=== PATIENT | male | born 1930 | race Hispanic/Latino ===

== ENCOUNTER 2018-12-23 10:56 | Emergency (ER) | payer MEDICARE, BC ==
[2018-12-23 11:01] VITALS: TEMP 97; O2SAT 96
[2018-12-23 11:02] VITALS: BMI 25.1
[2018-12-23] MEDS ORDERED: Sodium Chloride 0.9% 1,000 ML IV STA (12:43)
--- NOTE | 2018-12-23 12:48 | ED PDOC ---
Syncope/Near Syncope/Dizziness Time Seen by Provider: 12/23/18 11:00 Chief Complaint (Nursing): Dizziness/Lightheaded Chief Complaint (Provider): Dizziness/Lightheaded History Per: Patient History/Exam Limitations: no limitations Additional Complaint(s): 88 y/o male with a history of PE (IVc filer) presents to the ED due to chronic lower back pain and lower left abdominal pain. Patient states this morning he felt dizzy walking out the door but now he reports hes not dizzy anymore. Patient states he stopped drinking a few years ago. Patient denies headache, fever, or any vomiting. is at bedside. PMD: Moo Garcia NIHSS Stroke Scale - Date/Time Evaluation Performed Date Performed: 12/23/18 Time Performed: 12:00 When Was NIHSS Performed: Baseline - How Severe is the Stroke Level of Consciousness: 0=Alert LOC to Questions: 0=Both comments correct LOC to commands: 0=Obeys both correctly Best Gaze: 0=Normal Visual: 0=No visual loss Facial: 0=Normal Motor Arm - Left: 0=No drift Motor Arm - Right: 0=No drift Motor Leg - Left: 0=No drift Motor Leg - Right: 0=No drift Limb Ataxia: 0=Absent Sensory: 0=Normal Best Language: 0=No aphasia Dysarthia: 0=Normal articulation Extinction & Inattention (Neglect): 0=Normal, no object Score: 0 Past Medical History Reviewed: Historical Data, Nursing Documentation, Vital Signs Vital Signs: Last Vital Signs Temp 97 F L 12/23/18 11:00 Pulse 92 H 12/23/18 11:00 Resp BP 142/84 12/23/18 11:00 Pulse Ox 96 12/23/18 11:00 - Medical History PMH: Gall Bladder Disease (porcelain GB), Peripheral Edema (right ankle), Pulmonary Embolism (09/2014) Denies: Fractures, HIV, Chronic Kidney Disease - Surgical History Surgical History: No Surg Hx - Family History Family History: States: Unknown Family Hx - Living Arrangements Living Arrangements: With Family - Social History Current smoker - smoking cessation education provided: No Alcohol: None Drugs: Denies - Home Medications Home Medications: Ambulatory Orders Medication Instructions Recorded No Known Home Med 12/23/18 - Allergies Allergies/Adverse Reactions: Allergies Allergy/AdvReac Type Severity Reaction Status Date / Time No Known Allergies Allergy Verified 09/19/14 12:39 Review of Systems ROS Statement: Except As Marked, All Systems Reviewed And Found Negative Constitutional: Negative for: Fever Gastrointestinal: Positive for: Abdominal Pain (lower left). Negative for: Vomiting Musculoskeletal: Positive for: Back Pain Neurological: Positive for: Dizziness. Negative for: Headache Physical Exam - Reviewed Nursing Documentation Reviewed: Yes Vital Signs Reviewed: Yes - Physical Exam Appears: Positive for: Well, Non-toxic, No Acute Distress Head Exam: Positive for: ATRAUMATIC, NORMOCEPHALIC Skin: Positive for: Normal Color, Warm, Dry Eye Exam: Positive for: EOMI, Normal appearance, PERRL ENT: Positive for: Normal ENT Inspection Neck: Positive for: Normal, Painless ROM, Supple Cardiovascular/Chest: Positive for: Regular Rate, Rhythm. Negative for: Murmur Respiratory: Positive for: Normal Breath Sounds. Negative for: Respiratory Distress Gastrointestinal/Abdominal: Positive for: Normal Exam, Soft, Tenderness (LLQ) Back: Positive for: Normal Inspection. Negative for: L CVA Tenderness, R CVA Tenderness, Vertebral Tenderness Extremity: Positive for: Normal ROM. Negative for: Tenderness, Swelling Neurological/Psych: Positive for: Awake, Alert, Normal Tone, Oriented (x3). Negative for: Motor/Sensory Deficits - Laboratory Results Result Diagrams: 12/23/18 13:00 12/23/18 13:00 - ECG O2 Sat by Pulse Oximetry: 96 Medical Decision Making Medical Decision Making: Time:1119 Initial Impression: Initial Plan: Blood work -EKG 1502: Call Dr. Crockett pts pcp 1516: Called Dr. Crockett and can admit patient to hospitalist. Waiting for urine results. 17:11 UA resulted, no infection noted Called the hospitalist Dr. Watters, he has accepted the patient for admission. 17:46 Patient refuses further care, evaluation or treatment in the ER. Patient informed of the reasons for the following and planned treatment, which patient understands, however still refuses. Patient informed of the risk and benefits of treatment. Informed that the risk could include worsening of current conditions, undiagnosed conditions, disability or even . Patient understands the following risk and the benefits of treatment. Patient has the capacity to make decisions and still refuses treatment by RN, PA and ER MD. Patient encouraged to return to the ER at any time and to follow up with pmd. patient aware of results and need for inpatient treatment however pt states he feels better and wants to signout AMA pt awake alert and aware of results will follow up as outpatient Scribe Attestation: Documented by Kristin Pelletier, acting as a scribe for Zuleyka Robles Provider Scribe Attestation: All medical record entries made by the Scribe were at my direction and personally dictated by me. I have reviewed the chart and agree that the record accurately reflects my personal performance of the history, physical exam, medical decision making, and the department course for this patient. I have also personally directed, reviewed, and agree with the discharge instructions and disposition. Scribe Attestation: Documented by Teddy Rob, acting as a scribe for Zuleyka Robles MD Provider Scribe Attestation: All medical record entries made by the Scribe were at my direction and personally dictated by me. I have reviewed the chart and agree that the record accurately reflects my personal performance of the history, physical exam, medical decision making, and the department course for this patient. I have also personally directed, reviewed, and agree with the discharge instructions and disposition Disposition - Clinical Impression Clinical Impression: Dizziness, Left against medical advice - Patient ED Disposition Is Patient to be Admitted: No Counseled Patient/Family Regarding: Studies Performed, Diagnosis, Need For Followup - Disposition Disposition: Against Medical Advice Disposition Time: 15:16 Condition: STABLE Instructions: Dizziness, Nonvertigo, (DC), Leaving Against Medical Advice Forms: [employer] (Nepali) - POA Present On Arrival: None
[2018-12-23 13:16] LABS: BASO % 0.2 % (0.0-2.0); HEMOGLOBIN 15.2 g/dL (12.0-18.0); LYMPH # 0.5 K/uL (1.0-4.3); LYMPH % 4.3 % (20.0-40.0); MEAN CORPUSCULAR HEMOGLOBIN 31.7 pg (27.0-31.0); MEAN CORPUSCULAR HGB CONC 32.7 g/dL (33.0-37.0); MEAN PLATELET VOLUME 9.3 fl (7.2-11.7); MONO # 0.6 K/uL (0.0-0.8); MONO % 4.9 % (0.0-10.0); NEUT # 10.8 K/uL (1.8-7.0); NEUT % 90.6 % (50.0-75.0); NRBC % 0.1 % (0.0-0.0); PLATELET COUNT 98 K/uL (130-400); RBC 4.79 Mil/uL (4.40-5.90); RED CELL DISTRIBUTION WIDTH 13.9 % (11.5-14.5); WHITE BLOOD COUNT 11.9 K/uL (4.8-10.8)
[2018-12-23 13:31] LABS: ALB/GLOB RATIO 1.5 (1.0-2.1); ALBUMIN 4.5 g/dL (3.5-5.0); ALT/SGPT 23 U/L (21-72); AST/SGOT 27 U/L (17-59); BLOOD UREA NITROGEN 30 mg/dl (9-20); CALCIUM 9.4 mg/dL (8.4-10.2); GFR NON-AFRICAN AMERICAN 57
--- NOTE | 2018-12-23 14:00 | CT ---
Date of service: 12/23/2018 PROCEDURE: CT HEAD WITHOUT CONTRAST. HISTORY: dizziness COMPARISON: None available. TECHNIQUE: Axial computed tomography images were obtained through the head/brain without intravenous contrast. Radiation dose: Total exam DLP = 925.16 mGy-cm. This CT exam was performed using one or more of the following dose reduction techniques: Automated exposure control, adjustment of the mA and/or kV according to patient size, and/or use of iterative reconstruction technique. FINDINGS: HEMORRHAGE: No intracranial hemorrhage. BRAIN: There are mild chronic microangiopathic changes. There is no mass, mass effect or abnormal extra-axial fluid collection. There is no territorial infarction. The midline sagittal structures are normal. VENTRICLES: There is mild age-related global parenchymal volume loss and proportionate enlargement of the ventricles and cortical sulci. There is a prominent arachnoid granulation in the right superior posterior fossa with scalloping of the overlying inner table of the occipital bone. CALVARIUM: There is no calvarial fracture or extracranial soft tissue swelling. PARANASAL SINUSES: Predominantly clear. MASTOID AIR CELLS: Predominantly clear. OTHER FINDINGS: None. IMPRESSION: No acute intracranial abnormality. Mild chronic microangiopathic changes and mild age-related global parenchymal volume loss.
--- NOTE | 2018-12-23 14:27 | CT ---
Date of service: 12/23/2018 PROCEDURE: CT Abdomen and Pelvis without intravenous contrast HISTORY: Abdominal pain COMPARISON: None. TECHNIQUE: CT scan of the abdomen and pelvis was performed without administration of intravenous contrast. Oral contrast was not administered. Coronal and sagittal reformatted images were obtained. Radiation dose: Total exam DLP = 538.99 mGy-cm. This CT exam was performed using one or more of the following dose reduction techniques: Automated exposure control, adjustment of the mA and/or kV according to patient size, and/or use of iterative reconstruction technique. FINDINGS: LOWER THORAX: There is minimal subsegmental atelectasis in the lung bases. LIVER: Normal in size. No gross lesion or ductal dilatation. GALLBLADDER AND BILE DUCTS: Surgically absent. PANCREAS: Normal in size. No gross lesion or ductal dilatation. SPLEEN: Normal in size. ADRENALS: Mild thickening of both adrenal glands without discrete nodule. KIDNEYS AND URETERS: Both kidneys are normal in size. No hydronephrosis. There are punctate nonobstructing stones in the left kidney. There is nonspecific extensive perinephric fat stranding. VASCULATURE: Normal in caliber. No aortic aneurysm. No aortic atherosclerotic calcification or mural plaque present. A suprarenal IVC filter remains in place BOWEL: Evaluation of the bowel is limited in the absence of oral contrast. The small bowel loops are normal in caliber. There is extensive colonic diverticulosis without CT evidence for acute diverticulitis.. No bowel dilatation or wall thickening. No bowel obstruction. APPENDIX: Normal appendix. PERITONEUM: No free fluid. No free air. LYMPH NODES: No enlarged lymph nodes. BLADDER: The urinary bladder is partially distended. There is apparent moderate circumferential mural thickening with nonspecific perivesical fat stranding. REPRODUCTIVE: The prostate gland is normal in size. There are radiation seeds in the prostate gland. BONES: No acute fracture. There is diffuse bone demineralization and multilevel degenerative changes in the spine. OTHER FINDINGS: There is a small sliding hiatal hernia. IMPRESSION: 1. Punctate nonobstructing stones in the left kidney. No hydronephrosis or nephrolithiasis. Extensive perinephric fat stranding, nonspecific and likely related to report infection/inflammation. 2. The urinary bladder is partially distended. Apparent moderate circumferential mural thickening of the bladder wall with perivesical fat stranding could be related to underdistention however cystitis is a consideration. Clinical follow-up is advised. 3. Extensive colonic diverticulosis without CT evidence for acute diverticulitis.
[2018-12-23 14:44] LABS: LYMPHOCYTE 7 % (20-50); MONOCYTE 4 % (0-10); NEUTROPHIL 88 % (42-75); REACTIVE LYMPHOCYTES 1 % (0-0); TOTAL CELLS COUNTED 100
[2018-12-23 14:46] LABS: LARGE PLATELETS PRESENT; PLATELET ESTIMATE DECREASED (NORMAL)
[2018-12-23 14:47] LABS: GIANT PLATELETS PRESENT
[2018-12-23 16:38] LABS: URINE BILIRUBIN NEGATIVE (NEGATIVE); URINE CLARITY SLIGHT-CLOUDY (Clear); URINE COLOR YELLOW (YELLOW); URINE GLUCOSE (UA) NEGATIVE (NEGATIVE)
[2018-12-23 16:39] LABS: SQUAMOUS EPITHIAL 3 /hpf (0-5); URINE BLOOD MODERATE (NEGATIVE); URINE LEUKOCYTE ESTERASE NEGATIVE Leu/uL (Negative); URINE PROTEIN >=300 mg/dL (NEGATIVE); URINE UROBILINOGEN 0.2 mg/dL (0.2-1.0)
[2018-12-23 16:40] LABS: GRANULAR CAST 0-1 /lpf (0-1); URINE AMORPHOUS SEDIMENT FEW /ul (<OCC); URINE BACTERIA FEW (<OCC)
[2018-12-23 18:15] VITALS: RESP 18
[2018-12-23 18:19] VITALS: BP 132/79; PULSE 85
--- NOTE | 2018-12-24 09:53 | CARD ---
APPROVED REPORT Date of service: 12/23/2018 EKG Measurement Heart [id number] <Conclusion> Sinus rhythm with occasional premature ventricular complexes and premature atrial complexes Left axis deviation Inferior infarct, age undetermined Abnormal ECG
--- NOTE | 2018-12-24 13:29 | CP.PCM.CON ---
History of Present Illness - History of Present Illness History of Present Illness: Neurology Consultation Note: Consult requested by Dr. Crockett The patient is an 88-year-old man with a past medical history of HTN, back pain, who complained of dizziness at home, but this resolved. The patient has no focal deficits. CT head is not concerning. Review of Systems - Review of Systems All systems: reviewed and no additional remarkable complaints except Past Patient History - Past Medical History & Family History Past Medical History?: Yes - Past Social History Smoking Status: Never Smoked - CARDIAC Hx Peripheral Edema: Yes (right ankle) - PULMONARY Hx Pulmonary Embolism: Yes (09/2014) - NEUROLOGICAL Hx Neurological Disorder: No - HEENT Hx HEENT Problems: No - RENAL Hx Chronic Kidney Disease: No - ENDOCRINE/METABOLIC Hx Endocrine Disorders: No - HEMATOLOGICAL/ONCOLOGICAL Hx Human Immunodeficiency Virus (HIV): No - INTEGUMENTARY Hx Dermatological Problems: No - MUSCULOSKELETAL/RHEUMATOLOGICAL Hx Fractures: No - GASTROINTESTINAL Hx Gall Bladder Disease: Yes (porcelain GB) - GENITOURINARY/GYNECOLOGICAL Hx Genitourinary Disorders: No - PSYCHIATRIC Hx Psychophysiologic Disorder: No Hx Substance Use: No - SURGICAL HISTORY Other/Comment: PROSTATE SEED IMPLANT 2002 - ANESTHESIA Hx Anesthesia: Yes Hx Anesthesia Reactions: No Hx Malignant Hyperthermia: No Meds Allergies/Adverse Reactions: Allergies Allergy/AdvReac Type Severity Reaction Status Date / Time No Known Allergies Allergy Verified 09/19/14 12:39 Physical Exam - Constitutional Appears: Well - Head Exam Head Exam: ATRAUMATIC, NORMAL INSPECTION, NORMOCEPHALIC - Eye Exam Eye Exam: EOMI, Normal appearance, PERRL Pupil Exam: NORMAL ACCOMODATION, PERRL - ENT Exam ENT Exam: Mucous Membranes Moist, Normal Exam - Neck Exam Neck exam: Positive for: Normal Inspection - Respiratory Exam Respiratory Exam: Clear to Auscultation Bilateral, NORMAL BREATHING PATTERN - Cardiovascular Exam Cardiovascular Exam: REGULAR RHYTHM - GI/Abdominal Exam GI & Abdominal Exam: Normal Bowel Sounds, Soft. absent: Tenderness - Extremities Exam Extremities exam: Positive for: normal inspection - Back Exam Back exam: NORMAL INSPECTION - Neurological Exam Neurological exam: Alert, CN II-XII Intact, Normal Gait, Oriented x3, Reflexes Normal - Psychiatric Exam Psychiatric exam: Normal Affect, Normal Mood - Skin Skin Exam: Dry, Intact, Normal Color, Warm Results - Vital Signs Recent Vital Signs: Last Vital Signs Temp 97 F L 12/23/18 11:00 Pulse 85 12/23/18 17:18 Resp 18 12/23/18 17:18 BP 132/79 12/23/18 17:18 Pulse Ox 96 12/23/18 18:38 - Labs Result Diagrams: 12/23/18 13:00 12/23/18 13:00 Labs: Laboratory Results - last 24 hr 12/23/18 12/23/18 12/23/18 13:00 13:00 15:20 Neutrophils % (Manual) 88 H Lymphocytes % (Manual) 7 L Reactive Lymphs % 1 H Monocytes % (Manual) 4 Platelet Estimate Decreased L Large Platelets Present Giant Platelets Present Sodium 137 Potassium 4.6 Chloride 105 Carbon Dioxide 23 Anion Gap 14 BUN 30 H Creatinine 1.2 Est GFR ( Amer) > 60 Est GFR (Non-Af Amer) 57 Random Glucose 115 H Calcium 9.4 Total Bilirubin 0.8 AST 27 ALT 23 Alkaline Phosphatase 90 Total Protein 7.4 Albumin 4.5 Globulin 3.0 Albumin/Globulin Ratio 1.5 Urine Color Yellow Urine Clarity Slight-cloudy Urine pH 6.0 Ur Specific [place] >= 1.030 Urine Protein >=300 Urine Glucose (UA) Negative Urine Ketones Negative Urine Blood Moderate Urine Nitrate Negative Urine Bilirubin Negative Urine Urobilinogen 0.2 Ur Leukocyte Esterase Negative Urine RBC (Auto) 35 H Urine Microscopic WBC 2 Ur Squamous Epith Cells 3 Amorphous Sediment Few H Urine Bacteria Few H Hyaline Casts 2-4 Granular Casts (Auto) 0-1 Assessment & Plan (1) Dizziness Assessment and Plan: No further recommendations. Status: Acute
== END 2018-12-23 18:19 | disposition left against medical advice (07) ==
LOC: H.ER 10:56 → H.ERHOLD 17:14 → UNDOADMOB 17:14
DX: R42 Dizziness and giddiness (principal)
CPT/HCPCS: 70450; 74176; 80053; 81003; 82948; 85025; 87086; 93005; 99285; J7030

== ENCOUNTER 2019-01-03 11:50 | Inpatient (IN) | payer MEDICARE, BC ==
[2019-01-03 12:00] VITALS: BMI 25.8
--- NOTE | 2019-01-03 13:37 | ED PDOC ---
Lower Extremity Pain/Injury Time Seen by Provider: 01/03/19 12:44 Chief Complaint (Nursing): Lower Extremity Problem/Injury Chief Complaint (Provider): Lower extremity swelling History Per: Patient History/Exam Limitations: no limitations Onset/Duration Of Symptoms: Days Current Symptoms Are (Timing): Still Present Additional History Per: Patient Additional Complaint(s): 88yo male, comes to ER reporting bilateral lower extremity swelling, which has been worsening. Patient was seen in this ER 2 weeks ago, had a workup inculding US doppler, which was negative. Patient followed up with his PMD who advised him to stay off his feet and to rest. patient states despite resting, the swelling is persistent. He additionally reports decreased appetite, mild abdominal pain and some lower back pain. No trauma or injuries to these sites. Patient denies any recent travels, long periods of immobilization, calf pain. No additional complaints. PMD: Dr. Crockett Past Medical History Reviewed: Historical Data, Nursing Documentation, Vital Signs Vital Signs: Last Vital Signs Temp 97 F L 01/03/19 11:58 Pulse 87 01/03/19 11:58 Resp 18 01/03/19 11:58 BP 115/72 01/03/19 11:58 Pulse Ox 99 01/03/19 11:58 - Medical History PMH: Gall Bladder Disease (porcelain GB), Peripheral Edema (right ankle), Pulmonary Embolism (09/2014) Denies: Fractures, HIV, Chronic Kidney Disease - Surgical History Surgical History: No Surg Hx - Family History Family History: States: No Known Family Hx - Home Medications Home Medications: Ambulatory Orders Medication Instructions Recorded No Known Home Med 12/23/18 - Allergies Allergies/Adverse Reactions: Allergies Allergy/AdvReac Type Severity Reaction Status Date / Time No Known Allergies Allergy Verified 09/19/14 12:39 Review of Systems ROS Statement: Except As Marked, All Systems Reviewed And Found Negative Musculoskeletal: Positive for: Other (bilateral leg swelling) Physical Exam - Reviewed Nursing Documentation Reviewed: Yes Vital Signs Reviewed: Yes - Physical Exam Appears: Positive for: Non-toxic, No Acute Distress Head Exam: Positive for: ATRAUMATIC, NORMAL INSPECTION, NORMOCEPHALIC Skin: Positive for: Normal Color Eye Exam: Positive for: Normal appearance, EOMI, PERRL Neck: Positive for: Supple Cardiovascular/Chest: Positive for: Regular Rate, Rhythm. Negative for: Tachycardia Respiratory: Positive for: Normal Breath Sounds. Negative for: Respiratory Distress Pulses-Dorsalis Pedis (L): 2+ Pulses-Dorsalis Pedis (R): 2+ Pulses-Post. Tibialis (L): 2+ Pulses-Post. Tibialis (R): 2+ Extremity: Positive for: Normal ROM (FROM of bilateral lower extremities), Pedal Edema (non-pitting edema bilaterally), Capillary Refill (< 2 seconds). Negative for: Calf Tenderness, Deformity Neurological/Psych: Positive for: Awake, Alert, Oriented (x3) - Laboratory Results Result Diagrams: 01/04/19 06:15 01/04/19 06:15 - ECG O2 Sat by Pulse Oximetry: 99 (RA) Pulse Ox Interpretation: Normal Medical Decision Making Medical Decision Making: Workup for worsening leg swelling, r/o cardiac etiology -- CXR -- Labs including BNP, troponin ordered 1540 Patient had a bowel movement with bright red blood GI consult 1640. Spoke with Dr. Crockett who states that there was a plan to start the patient on anticoagulants due to BL DVTs but in agreement to not starting this medication at this time due to new GI bleed. Pt admitted to the medicine service and will be seen by GI. Pt with stable vitals and comfortable. Scribe Attestation: Documented by Antonia Koenig acting as a scribe for Jemima Rico MD. Provider Attestation: All medical record entries made by the Scribe were at my direction and personally dictated by me. I have reviewed the chart and agree that the record accurately reflects my personal performance of the history, physical exam, medical decision making, and the department course for this patient. I have also personally directed, reviewed, and agree with the discharge instructions and disposition. Disposition - Clinical Impression Clinical Impression: DVT (deep venous thrombosis), GI bleed - Disposition Disposition Time: 13:55 Condition: IMPROVED
[2019-01-03 14:12] LABS: BASO % 0.2 % (0.0-2.0); HEMOGLOBIN 12.3 g/dL (12.0-18.0); LYMPH # 0.6 K/uL (1.0-4.3); LYMPH % 5.3 % (20.0-40.0); MEAN CELL VOLUME 97.5 fl (80.0-94.0); MEAN CORPUSCULAR HEMOGLOBIN 31.8 pg (27.0-31.0); MEAN CORPUSCULAR HGB CONC 32.7 g/dL (33.0-37.0); MEAN PLATELET VOLUME 8.3 fl (7.2-11.7); MONO # 0.9 K/uL (0.0-0.8); MONO % 7.6 % (0.0-10.0); NEUT # 10.2 K/uL (1.8-7.0); NEUT % 86.9 % (50.0-75.0); NRBC % 0.1 % (0.0-0.0); PLATELET COUNT 157 K/uL (130-400); RBC 3.86 Mil/uL (4.40-5.90); RED CELL DISTRIBUTION WIDTH 13.8 % (11.5-14.5); WHITE BLOOD COUNT 11.7 K/uL (4.8-10.8)
[2019-01-03 14:19] LABS: INR 1.2; PROTHROMBIN TIME 13.4 Seconds (9.8-13.1)
--- NOTE | 2019-01-03 14:19 | RAD ---
Date of service: 01/03/2019 HISTORY: possible admission COMPARISON: No prior. TECHNIQUE: 1 view obtained. FINDINGS: LUNGS: Fibrotic changes are reiterated at the superior and lateral left lung zone as well as right apex. PLEURA: No significant pleural effusion identified, no pneumothorax apparent. CARDIOVASCULAR: Calcific atherosclerotic changes are seen related to the thoracic aorta. Normal cardiac size. No pulmonary vascular congestion. OSSEOUS STRUCTURES: No significant abnormalities. VISUALIZED UPPER ABDOMEN: Inferior vena cava filter again noted as well as surgical clips at the right upper quadrant abdomen. OTHER FINDINGS: None. IMPRESSION: No interval acute cardiopulmonary disease. Limited fibrotic changes in the bilateral apices and lateral left lung blackmon as well.
[2019-01-03 14:33] LABS: B-TYPE NATRIURETIC PEPTIDE 276 pg/ml (0-900)
[2019-01-03 14:34] LABS: BLOOD UREA NITROGEN 43 mg/dl (9-20); CALCIUM 9.2 mg/dL (8.4-10.2); GFR NON-AFRICAN AMERICAN 52
[2019-01-03 15:34] LABS: SQUAMOUS EPITHIAL 1 /hpf (0-5); URINE BACTERIA RARE (<OCC); URINE BILIRUBIN NEGATIVE (NEGATIVE); URINE BLOOD NEGATIVE (NEGATIVE); URINE CLARITY CLOUDY (Clear); URINE COLOR YELLOW (YELLOW); URINE GLUCOSE (UA) NEG (NEGATIVE); URINE LEUKOCYTE ESTERASE NEG Leu/uL (Negative); URINE PROTEIN 30 mg/dL (NEGATIVE); URINE UROBILINOGEN 0.2-1.0 mg/dL (0.2-1.0)
--- NOTE | 2019-01-03 16:40 | US ---
Date of service: 01/03/2019 PROCEDURE: Bilateral lower extremity venous duplex Doppler. HISTORY: rule out DVT COMPARISON: Bilateral lower extremity venous ultrasound 12/30/2018. TECHNIQUE: Bilateral common femoral, superficial femoral, popliteal and posterior tibial veins were evaluated. Flow was assessed with color Doppler, compressibility, assessment of phasic flow and augmentation response. FINDINGS: COMMON FEMORAL VEIN: The bilateral common femoral arteries are noncompressible with no augmentation or spontaneous color Doppler blood flow compatible with occlusive thrombosis. SUPERFICIAL FEMORAL VEIN: Occlusive thrombosis identified at the entire left superficial femoral vein which is noncompressible and non augmentable with no spontaneous color Doppler blood flow with similar changes at the proximal and distal right superficial femoral vein. The mid right SV exhibits [id number] spontaneous color Doppler blood flow and is inside technical sales representative of near occlusive thrombosis in the interval. Acute thrombosis superimposed over chronic right superficial femoral vein thrombosis. POPLITEAL VEIN: Near occlusive right and occlusive left venous thrombosis identified based on limited color per blood flow spontaneously occurring at the right popliteal vein and the lack of augmentation and compression at both. POSTERIOR TIBIAL VEIN: Right PTV: Occlusive thrombosis. Left PTV: Occlusive thrombosis. OTHER FINDINGS: None. 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 Occlusive thrombosis now seen at the right superficial femoral vein and is near occlusive at the right popliteal vein. Interval acute subacute occlusive thrombosis identified bilaterally diffusely otherwise.
[2019-01-03 17:24] LABS: LYMPHOCYTE 7 % (20-50); MONOCYTE 8 % (0-10); NEUTROPHIL 85 % (42-75); TOTAL CELLS COUNTED 100
[2019-01-03 17:26] LABS: PLATELET ESTIMATE NORMAL (NORMAL)
--- NOTE | 2019-01-03 17:44 | CP.PCM.HP ---
History of Present Illness - History of Present Illness History of Present Illness: 88 yo male with PMH of Lower Ext peripheral edema and Pulmonary Embolism (09/2014) present to the ED c/o bilateral lower extremity swelling, which has been worsening for the past few weeks. Patient was seen in this ER 2 weeks ago and had a workup inculding US doppler, which was negative. Patient followed up with his PMD and was advised to rest, he endorses despite resting, the swelling is persistent. He additionally reports decreased appetite, mild abdominal pain and some lower back pain. He reports taking occasional Aspirin for pain. During ED stay patient was noted to had a dark bloody stool. He reports occasional painful defecation and h/o fissure. Otherwise he denies trauma or injuries, any recent travels, long periods of immobilization, calf pain, prior melena or hematochezia. Also denies fever, chills, no weight loss, urinary sx or changes in BM. PMD: Dr. Crockett PMH: Gall Bladder Disease, Peripheral Edema lower ext, Pulmonary Embolism (09/2014) PSH: No known surg hx Meds FMH:No Known Family Hx NKDA SH: denies etoh, tobacco or ilicit drugs use Present on Admission - Present on Admission Any Indicators Present on Admission: Yes History of DVT/PE: Yes Review of Systems - Review of Systems All systems: reviewed and no additional remarkable complaints except (HPI) Past Patient History - Past Medical History & Family History Past Medical History?: Yes - Past Social History Smoking Status: Never Smoked - CARDIAC Hx Peripheral Edema: Yes (right ankle) - PULMONARY Hx Pulmonary Embolism: Yes (09/2014) - NEUROLOGICAL Hx Neurological Disorder: No - HEENT Hx HEENT Problems: No - RENAL Hx Chronic Kidney Disease: No - ENDOCRINE/METABOLIC Hx Endocrine Disorders: No - HEMATOLOGICAL/ONCOLOGICAL Hx Human Immunodeficiency Virus (HIV): No - INTEGUMENTARY Hx Dermatological Problems: No - MUSCULOSKELETAL/RHEUMATOLOGICAL Hx Fractures: No - GASTROINTESTINAL Hx Gall Bladder Disease: Yes (porcelain GB) - GENITOURINARY/GYNECOLOGICAL Hx Genitourinary Disorders: No - PSYCHIATRIC Hx Psychophysiologic Disorder: No Hx Substance Use: No - SURGICAL HISTORY Other/Comment: PROSTATE SEED IMPLANT 2002 - ANESTHESIA Hx Anesthesia: Yes Hx Anesthesia Reactions: No Hx Malignant Hyperthermia: No Meds Allergies/Adverse Reactions: Allergies Allergy/AdvReac Type Severity Reaction Status Date / Time No Known Allergies Allergy Verified 09/19/14 12:39 Physical Exam - Constitutional Appears: Non-toxic, No Acute Distress, Other (pale) - Head Exam Head Exam: NORMAL INSPECTION - Eye Exam Eye Exam: EOMI, PERRL - ENT Exam ENT Exam: Mucous Membranes Moist - Neck Exam Neck exam: Positive for: Full Rom. Negative for: Lymphadenopathy, Tenderness, Thyromegaly - Respiratory Exam Respiratory Exam: Clear to Auscultation Bilateral, NORMAL BREATHING PATTERN. absent: Chest Wall Tenderness - Cardiovascular Exam Cardiovascular Exam: REGULAR RHYTHM, +S1, +S2. absent: Tachycardia, Systolic Murmur - GI/Abdominal Exam GI & Abdominal Exam: Normal Bowel Sounds, Soft, Tenderness (RUQ and lower quadrants). absent: Distended - Rectal Exam Rectal Exam: Deferred - Extremities Exam Extremities exam: Positive for: pedal pulses present. Negative for: calf tenderness Additional comments: B/L pitting edema 2+ from ankle to mid barcenas - Back Exam Back exam: NORMAL INSPECTION, paraspinal tenderness. absent: CVA tenderness (L), CVA tenderness (R) - Neurological Exam Neurological exam: Alert, CN II-XII Intact, Oriented x3 - Psychiatric Exam Psychiatric exam: Normal Mood - Skin Skin Exam: Dry, Pallor, Warm Results - Vital Signs Recent Vital Signs: Last Vital Signs Temp 97 F L 01/03/19 11:58 Pulse 87 01/03/19 11:58 Resp 18 01/03/19 11:58 BP 115/72 01/03/19 11:58 Pulse Ox 99 01/03/19 16:43 - Labs Result Diagrams: 01/03/19 13:50 01/03/19 13:50 Labs: Laboratory Results - last 24 hr 01/03/19 01/03/19 01/03/19 13:50 13:50 13:50 WBC 11.7 H RBC 3.86 L Hgb 12.3 D Hct 37.7 MCV 97.5 H MCH 31.8 H MCHC 32.7 L RDW 13.8 Plt Count 157 MPV 8.3 Neut % (Auto) 86.9 H Lymph % (Auto) 5.3 L [place] % (Auto) 7.6 Eos % (Auto) 0.0 Baso % (Auto) 0.2 Neut # (Auto) 10.2 H Lymph # (Auto) 0.6 L [place] # (Auto) 0.9 H Eos # (Auto) 0.0 Baso # (Auto) 0.0 Neutrophils % (Manual) 85 H Lymphocytes % (Manual) 7 L Monocytes % (Manual) 8 Platelet Estimate Normal Macrocytosis (manual) Slight PT 13.4 H INR 1.2 APTT 32.0 Sodium 136 Potassium 4.7 Chloride 100 Carbon Dioxide 25 Anion Gap 16 BUN 43 H Creatinine 1.3 Est GFR ( Amer) > 60 Est GFR (Non-Af Amer) 52 Random Glucose 113 H Calcium 9.2 Troponin I < 0.0120 NT-Pro-B Natriuret Pep 276 Urine Color Urine Clarity Urine pH Ur Specific [place] Urine Protein Urine Glucose (UA) Urine Ketones Urine Blood Urine Nitrate Urine Bilirubin Urine Urobilinogen Ur Leukocyte Esterase Urine RBC (Auto) Urine Microscopic WBC Ur Squamous Epith Cells Urine Bacteria Hyaline Casts Blood Type Antibody Screen BBK History Checked 01/03/19 01/03/19 13:50 15:00 WBC RBC Hgb Hct MCV MCH MCHC RDW Plt Count MPV Neut % (Auto) Lymph % (Auto) [place] % (Auto) Eos % (Auto) Baso % (Auto) Neut # (Auto) Lymph # (Auto) [place] # (Auto) Eos # (Auto) Baso # (Auto) Neutrophils % (Manual) Lymphocytes % (Manual) Monocytes % (Manual) Platelet Estimate Macrocytosis (manual) PT INR APTT Sodium Potassium Chloride Carbon Dioxide Anion Gap BUN Creatinine Est GFR ( Amer) Est GFR (Non-Af Amer) Random Glucose Calcium Troponin I NT-Pro-B Natriuret Pep Urine Color Yellow Urine Clarity Cloudy Urine pH 5.0 Ur Specific [place] 1.024 Urine Protein 30 Urine Glucose (UA) Neg Urine Ketones Negative Urine Blood Negative Urine Nitrate Negative Urine Bilirubin Negative Urine Urobilinogen 0.2-1.0 Ur Leukocyte Esterase Neg Urine RBC (Auto) 2 Urine Microscopic WBC 3 Ur Squamous Epith Cells 1 Urine Bacteria Rare Hyaline Casts 11-20 H Blood Type B POSITIVE Antibody Screen Negative BBK History Checked Patient has bt Assessment & Plan - Assessment and Plan (Free Text) Assessment: 88 yo male patient admitted for evaluation and management of acute GI bleeding and bilateral lower ext edema. Plan: GI bleeding - admit to med/surg - VSS - likely upper because dark bloody stool - H/H stable - GI consulted: possible EGD in am - NPO - IVF - repeat CBC in 6 hrs - labs in am Subacute DVT on proximal R SFV DVT R popliteal vein - no anticoagulation for now due to GI bleed h/o chronic back pain - pain management - avoid NSAIDs and/or ASA Dehydration - likely do to poor intake - BUN 43 - IVF - f/u labs in am GI ppx - protonix Case discussed with Dr Silverio.
--- NOTE | 2019-01-03 18:48 | RAD ---
Date of service: 01/03/2019 PROCEDURE: Radiographs of the Lumbar Spine. HISTORY: fall COMPARISON: No prior. TECHNIQUE: 5 views obtained. FINDINGS: BONES: Normal alignment. No listhesis. No fracture. DISC SPACES: Unremarkable. OTHER FINDINGS: IVC filter identified. Vian seeds related to brachytherapy identified in the prostate. IMPRESSION: No significant or acute findings to account for/ related to the clinical presentation.
--- NOTE | 2019-01-03 18:48 | RAD ---
Date of service: 01/03/2019 PROCEDURE: Radiographs of the pelvis. HISTORY: Trauma/fall. COMPARISON: None. TECHNIQUE: 1 view obtained. FINDINGS: BONES: Pelvic Bones: Unremarkable. Hips: Degenerative changes are bilaterally symmetrical. JOINTS: Sacroiliac Joints: Unremarkable. Pubic Symphysis: Unremarkable. OTHER FINDINGS: [place] seeds related to brachytherapy identified in the prostate. IMPRESSION: No acute findings related to/ accounting for the clinical presentation.
[2019-01-03] MEDS: Sodium Chloride 0.9% 1,000 ML IV SCH (19:27)
[2019-01-03 19:57] LABS: ALB/GLOB RATIO 1.2 (1.0-2.1); ALBUMIN 3.9 g/dL (3.5-5.0); BILIRUBIN,DIRECT 0.4 mg/ml (0.0-0.4)
[2019-01-03] MEDS ORDERED: Naproxen 500 MG TAB PO SCH (21:00)
--- NOTE | 2019-01-03 23:13 | CP.PCM.CON ---
History of Present Illness - History of Present Illness History of Present Illness: 88 yo male referred to ER for presyncopal episodes, lower extremity weakness, and rectal bleeding. patient seen in ER 2 weeks ago and found to have DVT lower extremities. Not on anticoagulation due to rectal bleeding. Has been having difficulty solids and therefore has reduced oral intake. Has to chew well and feels he has to swish fod around in his mouth.Had bm in hospital and red mixed with dark stool was seen. Uses ASA fairly often for pain. Currently not on regular anticoagulant treatment. Past h/o PE. Review of Systems - EENT Eyes: absent: Blurred Vision Ears: absent: Ear Discharge Nose/Mouth/Throat: absent: Epistaxis - Cardiovascular Cardiovascular: absent: Chest Pain - Respiratory Respiratory: absent: Dyspnea - Gastrointestinal Gastrointestinal: As Per HPI, Dysphagia - Genitourinary Genitourinary: absent: Change in Urinary Stream Past Patient History - Past Medical History & Family History Past Medical History?: Yes - Past Social History Smoking Status: Never Smoked - CARDIAC Hx Cardiac Disorders: Yes Hx Peripheral Edema: Yes (right ankle) - PULMONARY Hx Respiratory Disorders: Yes Hx Pulmonary Embolism: Yes (09/2014) - NEUROLOGICAL Hx Neurological Disorder: No - HEENT Hx HEENT Problems: No - RENAL Hx Chronic Kidney Disease: No - ENDOCRINE/METABOLIC Hx Endocrine Disorders: No - HEMATOLOGICAL/ONCOLOGICAL Hx Blood Disorders: No Hx Human Immunodeficiency Virus (HIV): No - INTEGUMENTARY Hx Dermatological Problems: No - MUSCULOSKELETAL/RHEUMATOLOGICAL Hx Musculoskeletal Disorders: Yes Hx Falls: Yes (1 month ago) - GASTROINTESTINAL Hx Gastrointestinal Disorders: Yes Hx Gall Bladder Disease: Yes (porcelain GB) - GENITOURINARY/GYNECOLOGICAL Hx Genitourinary Disorders: No - PSYCHIATRIC Hx Psychophysiologic Disorder: No Hx Substance Use: No - SURGICAL HISTORY Hx Surgeries: No Other/Comment: PROSTATE SEED IMPLANT 2002 - ANESTHESIA Hx Anesthesia: Yes Hx Anesthesia Reactions: No Hx Malignant Hyperthermia: No Meds Allergies/Adverse Reactions: Allergies Allergy/AdvReac Type Severity Reaction Status Date / Time No Known Allergies Allergy Verified 09/19/14 12:39 - Medications Medications: Current Medications Acetaminophen (Tylenol 325mg Tab) 650 mg PO Q6 PRN PRN Reason: Fever >100.4 F Sodium Chloride (Sodium Chloride 0.9%) 1,000 mls @ 100 mls/hr IV .Q10H [facility] Last Admin: 01/03/19 19:27 Dose: 100 mls/hr Lidocaine (Lidoderm) 1 ea TD DAILY [facility] Ondansetron HCl (Zofran Inj) 4 mg IVP Q6 PRN PRN Reason: Nausea/Vomiting Pantoprazole Sodium (Protonix Inj) 40 mg IVP DAILY [facility] Physical Exam - Head Exam Head Exam: ATRAUMATIC - Eye Exam Eye Exam: Normal appearance - ENT Exam ENT Exam: Mucous Membranes Moist - Neck Exam Neck exam: Positive for: Full Rom - Respiratory Exam Respiratory Exam: Clear to Auscultation Bilateral - Cardiovascular Exam Cardiovascular Exam: REGULAR RHYTHM, +S1, +S2 - GI/Abdominal Exam GI & Abdominal Exam: Normal Bowel Sounds, Soft. absent: Tenderness Results - Vital Signs Recent Vital Signs: Last Vital Signs Temp 98 F 01/03/19 21:01 Pulse 88 01/03/19 21:01 Resp 18 01/03/19 21:01 BP 135/80 01/03/19 21:01 Pulse Ox 98 01/03/19 21:01 - Labs Result Diagrams: 01/03/19 13:50 01/03/19 13:50 Labs: Laboratory Results - last 24 hr 01/03/19 01/03/19 01/03/19 13:50 13:50 13:50 WBC 11.7 H RBC 3.86 L Hgb 12.3 D Hct 37.7 MCV 97.5 H MCH 31.8 H MCHC 32.7 L RDW 13.8 Plt Count 157 MPV 8.3 Neut % (Auto) 86.9 H Lymph % (Auto) 5.3 L [place] % (Auto) 7.6 Eos % (Auto) 0.0 Baso % (Auto) 0.2 Neut # (Auto) 10.2 H Lymph # (Auto) 0.6 L [place] # (Auto) 0.9 H Eos # (Auto) 0.0 Baso # (Auto) 0.0 Neutrophils % (Manual) 85 H Lymphocytes % (Manual) 7 L Monocytes % (Manual) 8 Platelet Estimate Normal Macrocytosis (manual) Slight PT 13.4 H INR 1.2 APTT 32.0 Sodium 136 Potassium 4.7 Chloride 100 Carbon Dioxide 25 Anion Gap 16 BUN 43 H Creatinine 1.3 Est GFR ( Amer) > 60 Est GFR (Non-Af Amer) 52 Random Glucose 113 H Calcium 9.2 Total Bilirubin Direct Bilirubin AST ALT Alkaline Phosphatase Troponin I < 0.0120 NT-Pro-B Natriuret Pep 276 Total Protein Albumin Globulin Albumin/Globulin Ratio Urine Color Urine Clarity Urine pH Ur Specific [place] Urine Protein Urine Glucose (UA) Urine Ketones Urine Blood Urine Nitrate Urine Bilirubin Urine Urobilinogen Ur Leukocyte Esterase Urine RBC (Auto) Urine Microscopic WBC Ur Squamous Epith Cells Urine Bacteria Hyaline Casts Blood Type Antibody Screen BBK History Checked 01/03/19 01/03/19 01/03/19 13:50 15:00 19:44 WBC RBC Hgb Hct MCV MCH MCHC RDW Plt Count MPV Neut % (Auto) Lymph % (Auto) [place] % (Auto) Eos % (Auto) Baso % (Auto) Neut # (Auto) Lymph # (Auto) [place] # (Auto) Eos # (Auto) Baso # (Auto) Neutrophils % (Manual) Lymphocytes % (Manual) Monocytes % (Manual) Platelet Estimate Macrocytosis (manual) PT INR APTT Sodium Potassium Chloride Carbon Dioxide Anion Gap BUN Creatinine Est GFR ( Amer) Est GFR (Non-Af Amer) Random Glucose Calcium Total Bilirubin 0.9 Direct Bilirubin 0.4 AST 40 ALT 31 Alkaline Phosphatase 79 Troponin I NT-Pro-B Natriuret Pep Total Protein 7.1 Albumin 3.9 Globulin 3.2 Albumin/Globulin Ratio 1.2 Urine Color Yellow Urine Clarity Cloudy Urine pH 5.0 Ur Specific [place] 1.024 Urine Protein 30 Urine Glucose (UA) Neg Urine Ketones Negative Urine Blood Negative Urine Nitrate Negative Urine Bilirubin Negative Urine Urobilinogen 0.2-1.0 Ur Leukocyte Esterase Neg Urine RBC (Auto) 2 Urine Microscopic WBC 3 Ur Squamous Epith Cells 1 Urine Bacteria Rare Hyaline Casts 11-20 H Blood Type B POSITIVE Antibody Screen Negative BBK History Checked Patient has bt Assessment & Plan (1) GI bleed Assessment and Plan: Patient appears to have both upper and lower GI bleed. Has difficulty swallowing suggestive of possible esophageal pathology. Elevated bun and chronicity of sx more c/w upper bleed. continue ppn. Upper endoscopy tomorrow if electrolytes are better. Possible lower endoscopy on the following day. Status: Acute
[2019-01-04] MEDS: Sodium Chloride 0.9% 1,000 ML IV SCH ×3 (05:13→23:06)
[2019-01-04 06:29] LABS: MEAN CELL VOLUME 97.2 fl (80.0-94.0); MEAN CORPUSCULAR HEMOGLOBIN 31.5 pg (27.0-31.0); MEAN CORPUSCULAR HGB CONC 32.4 g/dL (33.0-37.0); RBC 3.82 Mil/uL (4.40-5.90); WHITE BLOOD COUNT 11.1 K/uL (4.8-10.8)
[2019-01-04 06:49] LABS: BLOOD UREA NITROGEN 34 mg/dl (9-20); CALCIUM 8.9 mg/dL (8.4-10.2); GFR NON-AFRICAN AMERICAN > 60
[2019-01-04] MEDS ORDERED: Lactated Ringer's 500 ML IV ONE (08:45)
[2019-01-04] MEDS ORDERED: Propofol 10 mg/ml Inj (20 ML) ONE (08:49)
[2019-01-04] MEDS ORDERED: Etomidate 20 mg/10ml Inj IV ONE (08:49)
[2019-01-04] MEDS ORDERED: Pantoprazole 40 mg EC Tab PO SCH (09:00)
[2019-01-04] MEDS: Lidocaine 5% Patch TD SCH ×2 (09:55→09:57)
--- NOTE | 2019-01-04 10:39 | CP.PCM.PN ---
Subjective - Date & Time of Evaluation Date of Evaluation: 01/04/19 Time of Evaluation: 10:37 - Subjective Subjective: Patient seen and examined at bedside. Reports feeling well. States last BM was yesterday with bright red blood. He reports he has not had a bowel movement since then. Denies chest pain, shortness of breath, vomiting, nausea, abdominal pain, urinary symptoms. Hemodynamically stable. No acute overnight events. Objective - Vital Signs/Intake and Output Vital Signs (last 24 hours): Temp Pulse Resp BP Pulse Ox 99.4 F 87 22 140/76 98 01/04/19 09:20 01/04/19 09:20 01/04/19 09:20 01/04/19 09:20 01/04/19 09:20 Intake and Output: 01/04/19 01/04/19 06:59 18:59 Intake Total 150 Balance 150 - Medications Medications: Current Medications Acetaminophen (Tylenol 325mg Tab) 650 mg PO Q6 PRN PRN Reason: Fever >100.4 F Sodium Chloride (Sodium Chloride 0.9%) 1,000 mls @ 100 mls/hr IV .Q10H [facility] Last Admin: 01/04/19 05:13 Dose: 100 mls/hr Lidocaine (Lidoderm) 1 ea TD DAILY [facility] Last Admin: 01/04/19 09:57 Dose: Not Given Ondansetron HCl (Zofran Inj) 4 mg IVP Q6 PRN PRN Reason: Nausea/Vomiting Pantoprazole Sodium (Protonix Inj) 40 mg IVP DAILY [facility] Last Admin: 01/04/19 09:55 Dose: 40 mg - Labs Labs: 01/04/19 06:15 01/04/19 06:15 PT 13.4 Seconds (9.8-13.1) H 01/03/19 13:50 INR 1.2 01/03/19 13:50 APTT 32.0 Seconds (25.6-37.1) 01/03/19 13:50 - Constitutional Appears: Non-toxic, No Acute Distress - Eye Exam Eye Exam: Normal appearance, PERRL - ENT Exam ENT Exam: Mucous Membranes Moist - Respiratory Exam Respiratory Exam: Clear to Ausculation Bilateral, NORMAL BREATHING PATTERN. absent: Accessory Muscle Use, Chest Wall Tenderness, Decreased Breath Sounds, Prolonged Expiratory Phase, Rales, Rhonchi, Wheezes, Respiratory Distress, Stridor - Cardiovascular Exam Cardiovascular Exam: REGULAR RHYTHM, +S1, +S2 - GI/Abdominal Exam GI & Abdominal Exam: Soft, Normal Bowel Sounds. absent: Distended, Firm, Guarding, Rigid, Tenderness, Mass, Rebound - Extremities Exam Extremities Exam: Full ROM, Normal Capillary Refill, Pedal Edema (+2 pedal edema bilaterally. (chronic)). absent: Calf Tenderness, Joint Swelling, Tenderness - Neurological Exam Neurological Exam: Alert, Awake, Oriented x3 - Psychiatric Exam Psychiatric exam: Normal Affect, Normal Mood - Skin Skin Exam: Dry, Intact, Normal Color, Warm Assessment and Plan - Assessment and Plan (Free Text) Assessment: 88 yo male patient admitted for evaluation and management of acute GI bleeding and bilateral lower ext edema, s/p EGD performed today, 01/04/19. Plan: GI bleeding - hemodynamically stable - H/H stable - GI consult appreciated- EGD performed today, colonoscopy will be performed tomorrow. 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 Occlusive thrombosis now seen at the right superficial femoral vein and is near occlusive at the right popliteal vein. Interval acute subacute occlusive thrombosis identified bilaterally diffusely otherwise. h/o chronic back pain - pain management - avoid NSAIDs and/or ASA Dehydration - likely do to poor intake - BUN trending down from 43 to 34 - IVF - f/u labs GI ppx - protonix
--- NOTE | 2019-01-04 11:18 | CP.PCM.CON ---
History of Present Illness - History of Present Illness History of Present Illness: This 88 year old male presented to the office with progressive edema of both lower extremities. He has had a prior episode of DVT with pulmonary embolism in 2014 and was treated with LMWH and then warfarin. He had an IVC filter inserted because of bilateral PEs and residual lower extremities clot bilaterally. He completed 6 months of oral anticoagulation and then subsequently underwent cholecystectomy w/o incident. While in the emergency department on this present event he suddenly had a large bowel movement with bright red blood. Past Patient History - Past Medical History & Family History Past Medical History?: Yes - Past Social History Smoking Status: Never Smoked - CARDIAC Hx Cardiac Disorders: Yes Hx Peripheral Edema: Yes (right ankle) - PULMONARY Hx Respiratory Disorders: Yes Hx Pulmonary Embolism: Yes (09/2014) - NEUROLOGICAL Hx Neurological Disorder: No - HEENT Hx HEENT Problems: No - RENAL Hx Chronic Kidney Disease: No - ENDOCRINE/METABOLIC Hx Endocrine Disorders: No - HEMATOLOGICAL/ONCOLOGICAL Hx Cancer: Yes (prostate; seed implants) Hx Human Immunodeficiency Virus (HIV): No - INTEGUMENTARY Hx Dermatological Problems: No - MUSCULOSKELETAL/RHEUMATOLOGICAL Hx Musculoskeletal Disorders: Yes Hx Falls: Yes (1 month ago) - GASTROINTESTINAL Hx Gastrointestinal Disorders: Yes Hx Gall Bladder Disease: Yes (porcelain GB) - GENITOURINARY/GYNECOLOGICAL Hx Prostate Cancer: Yes - PSYCHIATRIC Hx Psychophysiologic Disorder: No Hx Substance Use: No - SURGICAL HISTORY Hx Surgeries: No Other/Comment: PROSTATE SEED IMPLANT 2002 - ANESTHESIA Hx Anesthesia: Yes Hx Anesthesia Reactions: No Hx Malignant Hyperthermia: No Meds Home Medications: Home Medication List Medication Instructions Recorded Confirmed Type Acetaminophen [Tylenol 325mg tab] 650 mg PO Q6 PRN tab 01/06/19 Rx Lidocaine 5% [Lidoderm] 1 ea TD DAILY patch 01/06/19 Rx Pantoprazole [Protonix Inj] 40 mg IVP DAILY vial 01/06/19 Rx Allergies/Adverse Reactions: Allergies Allergy/AdvReac Type Severity Reaction Status Date / Time No Known Allergies Allergy Verified 09/19/14 12:39 - Medications Medications: Current Medications Acetaminophen (Tylenol 325mg Tab) 650 mg PO Q6 PRN PRN Reason: Fever >100.4 F Bisacodyl (Dulcolax) 20 mg PO ONCE ONE Stop: 01/04/19 15:01 Sodium Chloride (Sodium Chloride 0.9%) 1,000 mls @ 100 mls/hr IV .Q10H [facility] Last Admin: 01/04/19 05:13 Dose: 100 mls/hr Lidocaine (Lidoderm) 1 ea TD DAILY [facility] Last Admin: 01/04/19 09:57 Dose: Not Given Magnesium Citrate (Citrate Of Mag) 300 ml PO ONCE ONE Stop: 01/04/19 12:01 Ondansetron HCl (Zofran Inj) 4 mg IVP Q6 PRN PRN Reason: Nausea/Vomiting Pantoprazole Sodium (Protonix Inj) 40 mg IVP DAILY [facility] Last Admin: 01/04/19 09:55 Dose: 40 mg Results - Vital Signs Recent Vital Signs: Last Vital Signs Temp 99.4 F 01/04/19 09:20 Pulse 87 01/04/19 09:20 Resp 22 01/04/19 09:20 BP 140/76 01/04/19 09:20 Pulse Ox 98 01/04/19 09:20 - Labs Result Diagrams: 01/07/19 06:10 01/04/19 06:15 Labs: Laboratory Results - last 24 hr 01/03/19 01/03/19 01/03/19 13:50 13:50 13:50 WBC 11.7 H RBC 3.86 L Hgb 12.3 D Hct 37.7 MCV 97.5 H MCH 31.8 H MCHC 32.7 L RDW 13.8 Plt Count 157 MPV 8.3 Neut % (Auto) 86.9 H Lymph % (Auto) 5.3 L [place] % (Auto) 7.6 Eos % (Auto) 0.0 Baso % (Auto) 0.2 Neut # (Auto) 10.2 H Lymph # (Auto) 0.6 L [place] # (Auto) 0.9 H Eos # (Auto) 0.0 Baso # (Auto) 0.0 Neutrophils % (Manual) 85 H Lymphocytes % (Manual) 7 L Monocytes % (Manual) 8 Platelet Estimate Normal Macrocytosis (manual) Slight PT 13.4 H INR 1.2 APTT 32.0 Sodium 136 Potassium 4.7 Chloride 100 Carbon Dioxide 25 Anion Gap 16 BUN 43 H Creatinine 1.3 Est GFR ( Amer) > 60 Est GFR (Non-Af Amer) 52 Random Glucose 113 H Calcium 9.2 Total Bilirubin Direct Bilirubin AST ALT Alkaline Phosphatase Troponin I < 0.0120 NT-Pro-B Natriuret Pep 276 Total Protein Albumin Globulin Albumin/Globulin Ratio Urine Color Urine Clarity Urine pH Ur Specific [place] Urine Protein Urine Glucose (UA) Urine Ketones Urine Blood Urine Nitrate Urine Bilirubin Urine Urobilinogen Ur Leukocyte Esterase Urine RBC (Auto) Urine Microscopic WBC Ur Squamous Epith Cells Urine Bacteria Hyaline Casts Blood Type Antibody Screen BBK History Checked 01/03/19 01/03/19 01/03/19 13:50 15:00 19:44 WBC RBC Hgb Hct MCV MCH MCHC RDW Plt Count MPV Neut % (Auto) Lymph % (Auto) [place] % (Auto) Eos % (Auto) Baso % (Auto) Neut # (Auto) Lymph # (Auto) [place] # (Auto) Eos # (Auto) Baso # (Auto) Neutrophils % (Manual) Lymphocytes % (Manual) Monocytes % (Manual) Platelet Estimate Macrocytosis (manual) PT INR APTT Sodium Potassium Chloride Carbon Dioxide Anion Gap BUN Creatinine Est GFR ( Amer) Est GFR (Non-Af Amer) Random Glucose Calcium Total Bilirubin 0.9 Direct Bilirubin 0.4 AST 40 ALT 31 Alkaline Phosphatase 79 Troponin I NT-Pro-B Natriuret Pep Total Protein 7.1 Albumin 3.9 Globulin 3.2 Albumin/Globulin Ratio 1.2 Urine Color Yellow Urine Clarity Cloudy Urine pH 5.0 Ur Specific [place] 1.024 Urine Protein 30 Urine Glucose (UA) Neg Urine Ketones Negative Urine Blood Negative Urine Nitrate Negative Urine Bilirubin Negative Urine Urobilinogen 0.2-1.0 Ur Leukocyte Esterase Neg Urine RBC (Auto) 2 Urine Microscopic WBC 3 Ur Squamous Epith Cells 1 Urine Bacteria Rare Hyaline Casts 11-20 H Blood Type B POSITIVE Antibody Screen Negative BBK History Checked Patient has bt 01/04/19 01/04/19 06:15 06:15 WBC 11.1 H RBC 3.82 L Hgb 12.0 Hct 37.2 MCV 97.2 H MCH 31.5 H MCHC 32.4 L RDW 14.0 Plt Count 164 MPV Neut % (Auto) Lymph % (Auto) [place] % (Auto) Eos % (Auto) Baso % (Auto) Neut # (Auto) Lymph # (Auto) [place] # (Auto) Eos # (Auto) Baso # (Auto) Neutrophils % (Manual) Lymphocytes % (Manual) Monocytes % (Manual) Platelet Estimate Macrocytosis (manual) PT INR APTT Sodium 137 Potassium 3.9 Chloride 104 Carbon Dioxide 23 Anion Gap 14 BUN 34 H Creatinine 1.1 Est GFR ( Amer) > 60 Est GFR (Non-Af Amer) > 60 Random Glucose 98 Calcium 8.9 Total Bilirubin Direct Bilirubin AST ALT Alkaline Phosphatase Troponin I NT-Pro-B Natriuret Pep Total Protein Albumin Globulin Albumin/Globulin Ratio Urine Color Urine Clarity Urine pH Ur Specific [place] Urine Protein Urine Glucose (UA) Urine Ketones Urine Blood Urine Nitrate Urine Bilirubin Urine Urobilinogen Ur Leukocyte Esterase Urine RBC (Auto) Urine Microscopic WBC Ur Squamous Epith Cells Urine Bacteria Hyaline Casts Blood Type Antibody Screen BBK History Checked Assessment & Plan (1) GI bleed Status: Acute Priority: High (2) DVT (deep venous thrombosis) Status: Chronic Priority: High - Date & Time Date: 01/04/19 Time: 11:15
[2019-01-04] MEDS ORDERED: Magnesium Citrate Oral SOL (300 ml) PO ONE ×2 (12:00→20:00)
[2019-01-04] MEDS ORDERED: Bisacodyl 5mg EC Tab PO ONE (15:00)
[2019-01-05] MEDS: Lidocaine 5% Patch TD SCH (08:59)
[2019-01-05] MEDS: Sodium Chloride 0.9% 1,000 ML IV SCH ×3 (10:51→23:36)
--- NOTE | 2019-01-05 11:22 | CP.PCM.PN ---
Subjective - Date & Time of Evaluation Date of Evaluation: 01/05/19 Time of Evaluation: 11:18 - Subjective Subjective: Lying in bed awaiting colonoscopy. Offers no GI complaints at this time. Had EGD yesterday; unofficially-HH, duodenal ulcer, Schatzki ring. Lower extremities remain ++ edematous, warm to touch, w/o cyanosis. Will proceed with treatment after colonoscopy. Probably start applying Checo wraps to both LEs. Objective - Vital Signs/Intake and Output Vital Signs (last 24 hours): Temp Pulse Resp BP Pulse Ox 97.6 F 81 20 127/73 98 01/05/19 08:25 01/05/19 08:25 01/05/19 08:25 01/05/19 08:25 01/05/19 08:25 - Medications Medications: Current Medications Acetaminophen (Tylenol 325mg Tab) 650 mg PO Q6 PRN PRN Reason: Fever >100.4 F Sodium Chloride (Sodium Chloride 0.9%) 1,000 mls @ 100 mls/hr IV .Q10H [facility] Last Admin: 01/05/19 10:51 Dose: 100 mls/hr Lidocaine (Lidoderm) 1 ea TD DAILY [facility] Last Admin: 01/05/19 08:59 Dose: Not Given Ondansetron HCl (Zofran Inj) 4 mg IVP Q6 PRN PRN Reason: Nausea/Vomiting Pantoprazole Sodium (Protonix Inj) 40 mg IVP DAILY [facility] Last Admin: 01/05/19 08:15 Dose: 40 mg - Labs Labs: 01/04/19 06:15 01/04/19 06:15 PT 13.4 Seconds (9.8-13.1) H 01/03/19 13:50 INR 1.2 01/03/19 13:50 APTT 32.0 Seconds (25.6-37.1) 01/03/19 13:50 Assessment and Plan (1) GI bleed Status: Acute (2) DVT (deep venous thrombosis) Status: Chronic
[2019-01-05] MEDS ORDERED: Lactated Ringer's 500 ML IV ONE (12:31)
[2019-01-05] MEDS ORDERED: Propofol 10 mg/ml Inj (20 ML) ONE (12:59)
[2019-01-05] MEDS ORDERED: Midazolam 2 MG/2 ML VIAL ONE (12:59)
--- NOTE | 2019-01-05 14:39 | PQF ---
PROVIDER RESPONSE TEXT: Unable to determine REVIEWER QUERY TEXT: Clarification of Clinical Diagnostic Findings Physician?s Documentation Request This Form is Not a Permanent Document in the Medical Record Pt Name: RENATA HOYT MR #: [id number] Payor: MEDICARE PART A Unit/Bed: [id number] Adm Date: 01/04/2019 1:55:00 PM Reviewer: Vale Paulson Ext. Query Date: 01/05/2019 2:30:08 PM Clarification of Clinical Diagnostic Findings [id number] By submitting this query, we are merely seeking further clarification of documentation to accurately reflect all conditions that you are monitoring, evaluating, treating or that extend the hospitalizati on or utilize additional resources of care. Please utilize your independent clinical judgment when ad dressing the question(s) below. Dear Doctor Leoanrda Silverio, The patient?s Clinical Indicators include: -- Please clarify the etiology of the GI Bleed: if known after the work up is completed. -OR: Unable to determine --OR: Other explanation of clinical finding H/H: 12.3/37.7->12.0/37.2 Path: bx. stomach: Gastritis, chronic, moderate 01/04: Endoscopy report: erosions gastric antrum; few non-bleeding cratered duodenal ulcers in duodena l bulb 01/05: Colonoscopy; multiple large.-mouthed diverticula entire colon; non-bleeding internal hemorrhoids ; medium size --See full reports in the EMR H and P includes: admitted for evaluation and management of acute GI bleeding and bilateral lower ext edema. Plan: GI bleeding - VSS - likely upper because dark bloody stool - H/H stable - GI consulted: possib le EGD in am - NPO - IVF - repeat CBC in 6 hrs. - labs in am 01/05 Pulmonary progress note includes: Had EGD yesterday; unofficially-HH, duodenal ulcer, Radhaki ri ng. PLEASE DOCUMENT ANY ADDITIONAL DIAGNOSES AND/OR SPECIFICITY IN THE PROGRESS NOTES AND/OR DISCHARGE CHAWLA MMARY. Clinically unable to determine/unknown Disagree with the above request Need to discuss Query created by: Vale Paulson on 01/05/2019 2:30 PM Electronically signed by: 01/05/2019 2:36 PM
--- NOTE | 2019-01-05 15:26 | CP.PCM.PN ---
Subjective - Date & Time of Evaluation Date of Evaluation: 01/05/19 Time of Evaluation: 10:20 - Subjective Subjective: Patient seen and examined at bedside. In no acute distress. No acute events overnight. Patient refused to participate in PT today due to "legs feeling heavy". Awaiting colonoscopy. Denies chest pain, SOB or dizziness. Objective - Vital Signs/Intake and Output Vital Signs (last 24 hours): Temp Pulse Resp BP Pulse Ox 97.5 F L 78 20 149/90 97 01/05/19 14:28 01/05/19 14:28 01/05/19 14:28 01/05/19 14:28 01/05/19 14:28 Intake and Output: 01/05/19 01/05/19 06:59 18:59 Intake Total 150 Balance 150 - Medications Medications: Current Medications Acetaminophen (Tylenol 325mg Tab) 650 mg PO Q6 PRN PRN Reason: Fever >100.4 F Sodium Chloride (Sodium Chloride 0.9%) 1,000 mls @ 100 mls/hr IV .Q10H [facility] Last Admin: 01/05/19 10:51 Dose: 100 mls/hr Lidocaine (Lidoderm) 1 ea TD DAILY [facility] Last Admin: 01/05/19 08:59 Dose: Not Given Ondansetron HCl (Zofran Inj) 4 mg IVP Q6 PRN PRN Reason: Nausea/Vomiting Pantoprazole Sodium (Protonix Inj) 40 mg IVP DAILY [facility] Last Admin: 01/05/19 08:15 Dose: 40 mg - Labs Labs: 01/04/19 06:15 01/04/19 06:15 PT 13.4 Seconds (9.8-13.1) H 01/03/19 13:50 INR 1.2 01/03/19 13:50 APTT 32.0 Seconds (25.6-37.1) 01/03/19 13:50 - Constitutional Appears: No Acute Distress - Head Exam Head Exam: ATRAUMATIC, NORMOCEPHALIC - Eye Exam Eye Exam: EOMI - ENT Exam ENT Exam: Mucous Membranes Moist - Respiratory Exam Respiratory Exam: Clear to Ausculation Bilateral, NORMAL BREATHING PATTERN - Cardiovascular Exam Cardiovascular Exam: REGULAR RHYTHM, +S1, +S2 - GI/Abdominal Exam GI & Abdominal Exam: Soft, Normal Bowel Sounds. absent: Tenderness - Extremities Exam Extremities Exam: Pedal Edema. absent: Calf Tenderness, Tenderness - Neurological Exam Neurological Exam: Alert, Awake, Oriented x3 - Psychiatric Exam Psychiatric exam: Normal Affect, Normal Mood - Skin Skin Exam: Dry, Normal Color, Warm Assessment and Plan - Assessment and Plan (Free Text) Assessment: 88 yr old M admitted for acute GI bleed and bilateral lower extremity edema. Patient had EGD which showed cratered non-bleeding duodenal ulcers. Colonoscopy today showed multiple large mouthed diverticula in the entire colon, non- bleeding medium sized internal hemorrhoids. 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
[2019-01-06] MEDS: Sodium Chloride 0.9% 1,000 ML IV SCH ×3 (06:03→21:28)
[2019-01-06 06:41] LABS: BASO % 0.4 % (0.0-2.0); EOS # 0.1 K/uL (0.0-0.7); EOS % 0.6 % (0.0-4.0); HEMOGLOBIN 11.6 g/dL (12.0-18.0); LYMPH # 1.1 K/uL (1.0-4.3); LYMPH % 10.6 % (20.0-40.0); MEAN CELL VOLUME 97.3 fl (80.0-94.0); MEAN CORPUSCULAR HEMOGLOBIN 32.2 pg (27.0-31.0); MEAN CORPUSCULAR HGB CONC 33.1 g/dL (33.0-37.0); MEAN PLATELET VOLUME 7.6 fl (7.2-11.7); MONO # 0.8 K/uL (0.0-0.8); NEUT # 8.4 K/uL (1.8-7.0); NEUT % 80.4 % (50.0-75.0); RBC 3.59 Mil/uL (4.40-5.90); RED CELL DISTRIBUTION WIDTH 13.4 % (11.5-14.5); WHITE BLOOD COUNT 10.4 K/uL (4.8-10.8)
[2019-01-06] MEDS: Lidocaine 5% Patch TD SCH (08:22)
--- NOTE | 2019-01-06 09:34 | CP.PCM.PN ---
Subjective - Date & Time of Evaluation Date of Evaluation: 01/06/19 Time of Evaluation: 09:34 - Subjective Subjective: Seen on rounds on the medical floor. Awake and cooperative, alert, well oriented. Had colonoscopy yesterday with diffuse diverticulosis and hemorrhoids, no active bleeding. Vital signs have been stable. Dependant edema of both legs remains ++ to thigh level. Patient has great difficulty ambulating because of heaviness of his legs and general debility/weakness. Will ask if vascular surgery can offer any further advice regarding treatment options going forward. Objective - Vital Signs/Intake and Output Vital Signs (last 24 hours): Temp Pulse Resp BP Pulse Ox 97.8 F 80 18 117/74 97 01/06/19 07:29 01/06/19 07:29 01/06/19 07:29 01/06/19 07:29 01/06/19 07:29 Intake and Output: 01/05/19 01/06/19 23:59 11:59 Intake Total 150 Balance 150 - Medications Medications: Current Medications Acetaminophen (Tylenol 325mg Tab) 650 mg PO Q6 PRN PRN Reason: Fever >100.4 F Sodium Chloride (Sodium Chloride 0.9%) 1,000 mls @ 100 mls/hr IV .Q10H [facility] Last Admin: 01/06/19 06:03 Dose: Not Given Lidocaine (Lidoderm) 1 ea TD DAILY [facility] Last Admin: 01/06/19 08:22 Dose: Not Given Ondansetron HCl (Zofran Inj) 4 mg IVP Q6 PRN PRN Reason: Nausea/Vomiting Pantoprazole Sodium (Protonix Inj) 40 mg IVP DAILY [facility] Last Admin: 01/06/19 08:20 Dose: 40 mg - Labs Labs: 01/06/19 05:40 01/04/19 06:15 PT 13.4 Seconds (9.8-13.1) H 01/03/19 13:50 INR 1.2 01/03/19 13:50 APTT 32.0 Seconds (25.6-37.1) 01/03/19 13:50 Assessment and Plan (1) GI bleed Status: Acute (2) DVT (deep venous thrombosis) Status: Chronic
--- NOTE | 2019-01-06 12:22 | CP.PCM.PN ---
Subjective - Date & Time of Evaluation Date of Evaluation: 01/06/19 Time of Evaluation: 09:45 - Subjective Subjective: Patient seen and examined at bedside. In no acute distress. Reports bilateral lower extremity swelling, difficulty ambulating and weakness persists. Discussed with patient plan for vascular surgery consult for further recommendation on p ossible vascular interventions. Objective - Vital Signs/Intake and Output Vital Signs (last 24 hours): Temp Pulse Resp BP Pulse Ox 97.8 F 80 18 117/74 97 01/06/19 07:29 01/06/19 07:29 01/06/19 07:29 01/06/19 07:29 01/06/19 07:29 - Medications Medications: Current Medications Acetaminophen (Tylenol 325mg Tab) 650 mg PO Q6 PRN PRN Reason: Fever >100.4 F Sodium Chloride (Sodium Chloride 0.9%) 1,000 mls @ 100 mls/hr IV .Q10H [facility] Last Admin: 01/06/19 06:03 Dose: Not Given Lidocaine (Lidoderm) 1 ea TD DAILY [facility] Last Admin: 01/06/19 08:22 Dose: Not Given Ondansetron HCl (Zofran Inj) 4 mg IVP Q6 PRN PRN Reason: Nausea/Vomiting Pantoprazole Sodium (Protonix Inj) 40 mg IVP DAILY [facility] Last Admin: 01/06/19 08:20 Dose: 40 mg - Labs Labs: 01/06/19 05:40 01/04/19 06:15 PT 13.4 Seconds (9.8-13.1) H 01/03/19 13:50 INR 1.2 01/03/19 13:50 APTT 32.0 Seconds (25.6-37.1) 01/03/19 13:50 - Constitutional Appears: No Acute Distress - Eye Exam Eye Exam: EOMI - ENT Exam ENT Exam: Mucous Membranes Moist - Respiratory Exam Respiratory Exam: NORMAL BREATHING PATTERN - Cardiovascular Exam Cardiovascular Exam: REGULAR RHYTHM, +S1, +S2 - GI/Abdominal Exam GI & Abdominal Exam: Soft, Normal Bowel Sounds. absent: Tenderness - Extremities Exam Extremities Exam: Pedal Edema (bilateral +2 up to thigh) - Neurological Exam Neurological Exam: Alert, Awake, Oriented x3 - Psychiatric Exam Psychiatric exam: Normal Affect, Normal Mood - Skin Skin Exam: Dry, Warm Assessment and Plan - Assessment and Plan (Free Text) Assessment: 88 yr old M admitted for acute GI bleed and bilateral lower extremity edema and weakness. Patient had EGD which showed cratered non-bleeding duodenal ulcers. Colonoscopy showed multiple large mouthed diverticula in the entire colon, non-bleeding medium sized internal hemorrhoids. Patient has acute on chronic right lower extremity DVT's in addition to significant edema and weakness. Vascular surgery consult placed for further recommendation on possible procedure vs medical treatment. 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
[2019-01-06 23:41] VITALS: TEMP 97.8
[2019-01-07] MEDS: Sodium Chloride 0.9% 1,000 ML IV SCH (02:00)
[2019-01-07 06:28] LABS: MEAN CELL VOLUME 96.5 fl (80.0-94.0); MEAN CORPUSCULAR HEMOGLOBIN 32.1 pg (27.0-31.0); MEAN CORPUSCULAR HGB CONC 33.3 g/dL (33.0-37.0); RBC 3.42 Mil/uL (4.40-5.90); RED CELL DISTRIBUTION WIDTH 13.6 % (11.5-14.5)
[2019-01-07] MEDS: Lidocaine 5% Patch TD SCH (08:12)
--- NOTE | 2019-01-07 14:20 | CP.PCM.DIS ---
<Mikayla Salazar - Last Filed: 01/07/19 14:18> Provider - Provider Date of Admission: 01/04/19 13:55 Attending physician: Leonarda Silverio MD Primary care physician: Dr. Crockett Consults: 01/03/19 16:21 Gastroenterology Consult Stat Comment: Consulting Provider: Rodger Hawk Consulting Physician: Rodger Hawk Reason for Consult: bright red blood per rectum 01/03/19 17:53 Physician Consult Routine Comment: Consulting Provider: Moo Crockett Consulting Physician: Moo Crockett Reason for Consult: PMD 01/06/19 10:17 Vascular Surgery Routine Comment: Progressively worsening LE edema bilaterally Consulting Provider: Austyn Hand Physician Instructions: Eval for treatment options Reason For Exam: Chronic DVT LEs, IVC filter in place Time Spent in preparation of Discharge (in minutes): 30 Diagnosis - Discharge Diagnosis (1) GI bleed Status: Resolved Priority: Low (2) DVT (deep venous thrombosis) Status: Chronic Priority: Low (3) Dizziness Status: Resolved Priority: Low (4) Bilateral lower extremity edema Status: Chronic Priority: Medium Hospital Course - Lab Results Lab Results: Most Recent Lab Values WBC 10.0 K/uL (4.8-10.8) 01/07/19 06:10 RBC 3.42 Mil/uL (4.40-5.90) L 01/07/19 06:10 Hgb 11.0 g/dL (12.0-18.0) L 01/07/19 06:10 Hct 33.0 % (35.0-51.0) L 01/07/19 06:10 MCV 96.5 fl (80.0-94.0) H 01/07/19 06:10 MCH 32.1 pg (27.0-31.0) H 01/07/19 06:10 MCHC 33.3 g/dL (33.0-37.0) 01/07/19 06:10 RDW 13.6 % (11.5-14.5) 01/07/19 06:10 Plt Count 165 K/uL (130-400) 01/07/19 06:10 MPV 7.6 fl (7.2-11.7) 01/06/19 05:40 Neut % (Auto) 80.4 % (50.0-75.0) H 01/06/19 05:40 Lymph % (Auto) 10.6 % (20.0-40.0) L 01/06/19 05:40 [place] % (Auto) 8.0 % (0.0-10.0) 01/06/19 05:40 Eos % (Auto) 0.6 % (0.0-4.0) 01/06/19 05:40 Baso % (Auto) 0.4 % (0.0-2.0) 01/06/19 05:40 Neut # (Auto) 8.4 K/uL (1.8-7.0) H 01/06/19 05:40 Lymph # (Auto) 1.1 K/uL (1.0-4.3) 01/06/19 05:40 [place] # (Auto) 0.8 K/uL (0.0-0.8) 01/06/19 05:40 Eos # (Auto) 0.1 K/uL (0.0-0.7) 01/06/19 05:40 Baso # (Auto) 0.0 K/uL (0.0-0.2) 01/06/19 05:40 Neutrophils % (Manual) 85 % (42-75) H 01/03/19 13:50 Lymphocytes % (Manual) 7 % (20-50) L 01/03/19 13:50 Monocytes % (Manual) 8 % (0-10) 01/03/19 13:50 Platelet Estimate Normal (NORMAL) 01/03/19 13:50 Macrocytosis (manual) Slight 01/03/19 13:50 PT 13.4 Seconds (9.8-13.1) H 01/03/19 13:50 INR 1.2 01/03/19 13:50 APTT 32.0 Seconds (25.6-37.1) 01/03/19 13:50 Sodium 137 mmol/l (132-148) 01/04/19 06:15 Potassium 3.9 MMOL/L (3.6-5.0) 01/04/19 06:15 Chloride 104 mmol/L (98-107) 01/04/19 06:15 Carbon Dioxide 23 mmol/L (22-30) 01/04/19 06:15 Anion Gap 14 (10-20) 01/04/19 06:15 BUN 34 mg/dl (9-20) H 01/04/19 06:15 Creatinine 1.1 mg/dl (0.8-1.5) 01/04/19 06:15 Est GFR ( Amer) > 60 01/04/19 06:15 Est GFR (Non-Af Amer) > 60 01/04/19 06:15 Random Glucose 98 mg/dL (75-110) 01/04/19 06:15 Calcium 8.9 mg/dL (8.4-10.2) 01/04/19 06:15 Total Bilirubin 0.9 mg/dl (0.2-1.3) 01/03/19 19:44 Direct Bilirubin 0.4 mg/ml (0.0-0.4) 01/03/19 19:44 AST 40 U/L (17-59) 01/03/19 19:44 ALT 31 U/L (21-72) 01/03/19 19:44 Alkaline Phosphatase 79 U/L (38-126) 01/03/19 19:44 Troponin I < 0.0120 ng/mL (0.00-0.120) 01/03/19 13:50 NT-Pro-B Natriuret Pep 276 pg/ml (0-900) 01/03/19 13:50 Total Protein 7.1 G/DL (6.3-8.2) 01/03/19 19:44 Albumin 3.9 g/dL (3.5-5.0) 01/03/19 19:44 Globulin 3.2 gm/dL (2.2-3.9) 01/03/19 19:44 Albumin/Globulin Ratio 1.2 (1.0-2.1) 01/03/19 19:44 Urine Color Yellow (YELLOW) 01/03/19 15:00 Urine Clarity Cloudy (Clear) 01/03/19 15:00 Urine pH 5.0 (5.0-8.0) 01/03/19 15:00 Ur Specific [place] 1.024 (1.003-1.030) 01/03/19 15:00 Urine Protein 30 mg/dL (NEGATIVE) 01/03/19 15:00 Urine Glucose (UA) Neg mg/dL (NEGATIVE) 01/03/19 15:00 Urine Ketones Negative mg/dL (NEGATIVE) 01/03/19 15:00 Urine Blood Negative (NEGATIVE) 01/03/19 15:00 Urine Nitrate Negative (NEGATIVE) 01/03/19 15:00 Urine Bilirubin Negative (NEGATIVE) 01/03/19 15:00 Urine Urobilinogen 0.2-1.0 mg/dL (0.2-1.0) 01/03/19 15:00 Ur Leukocyte Esterase Neg João/uL (Negative) 01/03/19 15:00 Urine RBC (Auto) 2 /hpf (0-3) 01/03/19 15:00 Urine Microscopic WBC 3 /hpf (0-5) 01/03/19 15:00 Ur Squamous Epith Cells 1 /hpf (0-5) 01/03/19 15:00 Urine Bacteria Rare (<OCC) 01/03/19 15:00 Hyaline Casts 11-20 /hpf (0-2) H 01/03/19 15:00 Blood Type B POSITIVE 01/03/19 13:50 Antibody Screen Negative 01/03/19 13:50 BBK History Checked Patient has bt 01/03/19 13:50 - Hospital Course Hospital Course: 88 yr old M admitted for acute GI bleed and bilateral lower extremity edema and weakness with significant PMHX of RLE DVT's, 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 Patient was treated with IV PPI and fluids. Patient had EGD which showed cratered non-bleeding duodenal ulcers. Colonoscopy showed multiple large mouthed diverticula in the entire colon, non-bleeding medium sized internal hemorrhoids. Aspirin was discontinued. Hemoglobin had mild decrease. Patient's continued to have significant lower extremity edema and weakness. Vascular surgery was consulted and recommendation is for conservative treatment at this time is for CORNELIA bandages to bilateral lower extremities. Patient was evaluated by physical therapy and recommendation is TCU. Patient is stable for discharge to TCU. - Date & Time of H&P Date of H&P: 01/03/19 Time of H&P: 17:43 Discharge Exam - Head Exam Head Exam: ATRAUMATIC, NORMOCEPHALIC - Eye Exam Eye Exam: EOMI - ENT Exam ENT Exam: Mucous Membranes Moist - Respiratory Exam Respiratory Exam: NORMAL BREATHING PATTERN. absent: Rales, Rhonchi - Cardiovascular Exam Cardiovascular Exam: REGULAR RHYTHM, +S1, +S2 - GI/Abdominal Exam GI & Abdominal Exam: Normal Bowel Sounds, Soft - Exam Exam: Scrotal Swelling - Extremities Exam Extremities exam: pedal edema (up to thigh/scrotum; no calf tenderness) - Neurological Exam Neurological exam: Alert, CN II-XII Intact, Oriented x3 - Psychiatric Exam Psychiatric exam: Normal Affect, Normal Mood - Skin Skin Exam: Dry, Normal Color, Warm Discharge Plan - Discharge Medications Prescriptions: Pantoprazole [Protonix] 40 mg PO DAILY #30 ect - Follow Up Plan Condition: IMPROVED Disposition: REHAB FACILITY/REHAB UNIT Instructions: Gastrointestinal Bleeding (DC) Additional Instructions: Patient stable for transfer to TCU for PT/OT. Referrals: Moo Crockett MD [Staff Provider] - <Ericka Nagel - Last Filed: 01/07/19 16:18> Provider - Provider Date of Admission: 01/04/19 13:55 Attending physician: Leonarda Silverio MD Consults: 01/03/19 16:21 Gastroenterology Consult Stat Comment: Consulting Provider: Rodger Hawk Consulting Physician: Rodger Hawk Reason for Consult: bright red blood per rectum 01/03/19 17:53 Physician Consult Routine Comment: Consulting Provider: Moo Crockett Consulting Physician: Moo Crockett Reason for Consult: PMD 01/06/19 10:17 Vascular Surgery Routine Comment: Progressively worsening LE edema bilaterally Consulting Provider: Austyn Hand Physician Instructions: Eval for treatment options Reason For Exam: Chronic DVT LEs, IVC filter in place Hospital Course - Lab Results Lab Results: Most Recent Lab Values WBC 10.0 K/uL (4.8-10.8) 01/07/19 06:10 RBC 3.42 Mil/uL (4.40-5.90) L 01/07/19 06:10 Hgb 11.0 g/dL (12.0-18.0) L 01/07/19 06:10 Hct 33.0 % (35.0-51.0) L 01/07/19 06:10 MCV 96.5 fl (80.0-94.0) H 01/07/19 06:10 MCH 32.1 pg (27.0-31.0) H 01/07/19 06:10 MCHC 33.3 g/dL (33.0-37.0) 01/07/19 06:10 RDW 13.6 % (11.5-14.5) 01/07/19 06:10 Plt Count 165 K/uL (130-400) 01/07/19 06:10 MPV 7.6 fl (7.2-11.7) 01/06/19 05:40 Neut % (Auto) 80.4 % (50.0-75.0) H 01/06/19 05:40 Lymph % (Auto) 10.6 % (20.0-40.0) L 01/06/19 05:40 [place] % (Auto) 8.0 % (0.0-10.0) 01/06/19 05:40 Eos % (Auto) 0.6 % (0.0-4.0) 01/06/19 05:40 Baso % (Auto) 0.4 % (0.0-2.0) 01/06/19 05:40 Neut # (Auto) 8.4 K/uL (1.8-7.0) H 01/06/19 05:40 Lymph # (Auto) 1.1 K/uL (1.0-4.3) 01/06/19 05:40 [place] # (Auto) 0.8 K/uL (0.0-0.8) 01/06/19 05:40 Eos # (Auto) 0.1 K/uL (0.0-0.7) 01/06/19 05:40 Baso # (Auto) 0.0 K/uL (0.0-0.2) 01/06/19 05:40 Neutrophils % (Manual) 85 % (42-75) H 01/03/19 13:50 Lymphocytes % (Manual) 7 % (20-50) L 01/03/19 13:50 Monocytes % (Manual) 8 % (0-10) 01/03/19 13:50 Platelet Estimate Normal (NORMAL) 01/03/19 13:50 Macrocytosis (manual) Slight 01/03/19 13:50 PT 13.4 Seconds (9.8-13.1) H 01/03/19 13:50 INR 1.2 01/03/19 13:50 APTT 32.0 Seconds (25.6-37.1) 01/03/19 13:50 Sodium 137 mmol/l (132-148) 01/04/19 06:15 Potassium 3.9 MMOL/L (3.6-5.0) 01/04/19 06:15 Chloride 104 mmol/L (98-107) 01/04/19 06:15 Carbon Dioxide 23 mmol/L (22-30) 01/04/19 06:15 Anion Gap 14 (10-20) 01/04/19 06:15 BUN 34 mg/dl (9-20) H 01/04/19 06:15 Creatinine 1.1 mg/dl (0.8-1.5) 01/04/19 06:15 Est GFR ( Amer) > 60 01/04/19 06:15 Est GFR (Non-Af Amer) > 60 01/04/19 06:15 Random Glucose 98 mg/dL (75-110) 01/04/19 06:15 Calcium 8.9 mg/dL (8.4-10.2) 01/04/19 06:15 Total Bilirubin 0.9 mg/dl (0.2-1.3) 01/03/19 19:44 Direct Bilirubin 0.4 mg/ml (0.0-0.4) 01/03/19 19:44 AST 40 U/L (17-59) 01/03/19 19:44 ALT 31 U/L (21-72) 01/03/19 19:44 Alkaline Phosphatase 79 U/L (38-126) 01/03/19 19:44 Troponin I < 0.0120 ng/mL (0.00-0.120) 01/03/19 13:50 NT-Pro-B Natriuret Pep 276 pg/ml (0-900) 01/03/19 13:50 Total Protein 7.1 G/DL (6.3-8.2) 01/03/19 19:44 Albumin 3.9 g/dL (3.5-5.0) 01/03/19 19:44 Globulin 3.2 gm/dL (2.2-3.9) 01/03/19 19:44 Albumin/Globulin Ratio 1.2 (1.0-2.1) 01/03/19 19:44 Urine Color Yellow (YELLOW) 01/03/19 15:00 Urine Clarity Cloudy (Clear) 01/03/19 15:00 Urine pH 5.0 (5.0-8.0) 01/03/19 15:00 Ur Specific [place] 1.024 (1.003-1.030) 01/03/19 15:00 Urine Protein 30 mg/dL (NEGATIVE) 01/03/19 15:00 Urine Glucose (UA) Neg mg/dL (NEGATIVE) 01/03/19 15:00 Urine Ketones Negative mg/dL (NEGATIVE) 01/03/19 15:00 Urine Blood Negative (NEGATIVE) 01/03/19 15:00 Urine Nitrate Negative (NEGATIVE) 01/03/19 15:00 Urine Bilirubin Negative (NEGATIVE) 01/03/19 15:00 Urine Urobilinogen 0.2-1.0 mg/dL (0.2-1.0) 01/03/19 15:00 Ur Leukocyte Esterase Neg João/uL (Negative) 01/03/19 15:00 Urine RBC (Auto) 2 /hpf (0-3) 01/03/19 15:00 Urine Microscopic WBC 3 /hpf (0-5) 01/03/19 15:00 Ur Squamous Epith Cells 1 /hpf (0-5) 01/03/19 15:00 Urine Bacteria Rare (<OCC) 01/03/19 15:00 Hyaline Casts 11-20 /hpf (0-2) H 01/03/19 15:00 Blood Type B POSITIVE 01/03/19 13:50 Antibody Screen Negative 01/03/19 13:50 BBK History Checked Patient has bt 01/03/19 13:50 Attending/Attestation - Attestation I have personally seen and examined this patient.: Yes I have fully participated in the care of the patient.: Yes I have reviewed all pertinent clinical information, including history, physical exam and plan: Yes Notes (Text): Gastrointestinal Bleed unclear source Non bleeding Duodenal Ulcers Gastitis Hiatal Hernia Diverticulosis Internal Hemorrhoids Acute/ subacute DVT to RLE , IVC Filter in place Lower back pain/ gait instability Dehydration EGD and Colonoscopy done has IVC in place No anticoagulation since patient is high risk for GI Bleed Transfer to TCU for PT Vascular surgery consulted- CORNELIA wrap of LE , no surgical intervention has history of fall 1 month ago-pelvis and lumbar spine Xray showed no acute fracture or pathology Pain mgt
[2019-01-07 16:41] VITALS: BP 120/73; PULSE 89; RESP 18; O2SAT 97
--- NOTE | 2019-01-08 03:13 | CON ---
DATE: 01/07/2019 REASON FOR CONSULTATION: Bilateral lower extremity edema, DVT, PE. REQUESTING PHYSICIAN: Leonarda Silverio MD REPORT OF CONSULTATION: This is an 88-year-old male. The patient was admitted to the hospital complaining of bilateral lower extremity swelling. This was not associated with any pain, ulcers, or hyperpigmentation. The patient states that he feels like he is walking with elephant legs. 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 PAST MEDICAL HISTORY: Unremarkable for hypertension. The patient denies diabetes mellitus, stoke, myocardial infarction and angina. PAST SURGICAL HISTORY: As above. MEDICATIONS: As reviewed in the medical reconciliation sheet. SOCIAL HISTORY: The patient is retired and does not drink or smoke. REVIEW OF SYSTEMS: SKIN: No acne or eczema. No dermatitis or ulcers. HEAD AND NECK: No migraines, nosebleeds, double vision, sore throat, or hearing disorder. RESPIRATORY: No recent cough, cold, hemoptysis. No asthma, emphysema. CARDIOVASCULAR: No chest pains or palpitations. GASTROINTESTINAL: No abdominal pain, nausea, vomiting, diarrhea. The patient was worked up for a GI bleed while on anticoagulation. GENITOURINARY: No dysuria, hematuria. NEUROVASCULAR: No paralysis, seizures, problems of swallowing or speaking. PSYCHIATRIC: No known psychiatric diseases. ALLERGIES: NONE KNOWN. PHYSICAL EXAMINATION: GENERAL: Reveals a pleasant male patient, in bed. No acute distress. HEAD AND NECK: Mucous membranes pink. No jaundice. NECK: Supple. No masses. CHEST: No masses, equal expansion. THYROID: No masses, no enlargement. CARDIOVASCULAR: Heart sounds 1 and 2 are heard. Pulse, good volume, regular. RESPIRATORY: Lungs clear. Good air entry. ABDOMEN: Soft, nontender, no masses. Bowel sound is present. LYMPHATIC: No adenopathy. VASCULAR: No ulcers. No gangrene. EXTREMITIES: The patient has bilateral 3+/4 pitting edema of the lower extremity. In extremities, there are no hyperpigmentation. DIAGNOSES: 1. Venothrombotic disease. 2. Bilateral lower extremity edema. 3. Deep venous thrombosis. RECOMMENDATIONS: 1. The patient's edema is likely secondary to post-thrombotic disease. If the patient can tolerate, the anticoagulation may me resumed. 2. No surgical intervention would be indicated at this time. 3. Elevation of bilateral lower extremities and [place] wrap of the lower extremity from the toes up to the knees. Austyn Hand MD
[2019-01-10 04:14] LABS: B2 GLYCOPROTEIN I AB(IGA) <9 SAU (<=20); B2 GLYCOPROTEIN I AB(IGG) <9 SGU (<=20); B2 GLYCOPROTEIN I AB(IGM) <9 SMU (<=20)
[2019-01-10 15:13] LABS: PHOSPHATIDYLSERINE AB IGA <20 U/mL (<20); PHOSPHATIDYLSERINE AB IGG <10 U/mL (<10); PHOSPHATIDYLSERINE AB IGM <25 U/mL (<25)
== END 2019-01-07 20:25 | DRG 300 ==
LOC: H.ER 11:50 → INTOOBSV 16:37 → H.ERHOLD 16:37 → H.MEDSURG1 20:43 → OBSVTOIN 01-04 13:55
PROVIDERS: ADMIT Hospitalist; ATTEND Hospitalist
PROC: 0DB78ZX Excision of Stomach, Pylorus, Via Natural or Artificial Opening Endoscopic, Diagnostic (ICD-10-PCS; 2019-01-04)
PROC: 0DB68ZX Excision of Stomach, Via Natural or Artificial Opening Endoscopic, Diagnostic (ICD-10-PCS; principal; 2019-01-04 09:00)
PROC: 0DJD8ZZ Inspection of Lower Intestinal Tract, Via Natural or Artificial Opening Endoscopic (ICD-10-PCS; 2019-01-05)
DX: I82.411 Acute embolism and thrombosis of right femoral vein (principal); K92.2 Gastrointestinal hemorrhage, unspecified; E86.0 Dehydration; K22.2 Esophageal obstruction; K44.9 Diaphragmatic hernia without obstruction or gangrene; Z85.46 Personal history of malignant neoplasm of prostate; K26.9 Duodenal ulcer, unspecified as acute or chronic, without hemorrhage or perforation; K57.30 Diverticulosis of large intestine without perforation or abscess without bleeding; K64.8 Other hemorrhoids; Z95.828 Presence of other vascular implants and grafts; Z86.711 Personal history of pulmonary embolism; K82.9 Disease of gallbladder, unspecified; M54.5 Low back pain; R94.4 Abnormal results of kidney function studies

== ENCOUNTER 2019-01-07 16:29 | Inpatient (IN) | payer OTHER, BC ==
[2019-01-07 21:08] VITALS: BMI 25.7
--- NOTE | 2019-01-08 07:18 | CP.PCM.HP ---
<Mikayla Salazar - Last Filed: 01/08/19 09:48> History of Present Illness - History of Present Illness History of Present Illness: 88 yr old M admitted to TCU for significant bilateral lower extremity weakness and swelling with gait instability s/p discharge from med/surg where patient was treated for acute GI bleed. Patient has PMHX of RLE DVT's, 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 Patient was treated with IV PPI and fluids. Patient had EGD which showed cratered non-bleeding duodenal ulcers. Colonoscopy showed multiple large mouthed diverticula in the entire colon, non- bleeding medium sized internal hemorrhoids. Aspirin was discontinued. Hemoglobin had mild decrease. Patient's continued to have significant lower extremity edema and weakness. Vascular surgery was consulted and recommendation is for conservative treatment at this time is for CORNELIA bandages to bilateral lower extremities. Patient was evaluated by physical therapy and recommendation is TCU. Patient is stable for PT/OT. Present on Admission - Present on Admission Any Indicators Present on Admission: Yes History of DVT/PE: Yes History of Uncontrolled Diabetes: No Urinary Catheter: No Decubitus Ulcer Present: No Review of Systems - Constitutional Constitutional: absent: Chills, Headache - EENT Eyes: absent: Blurred Vision Ears: absent: Dizziness Nose/Mouth/Throat: absent: Sore Throat - Cardiovascular Cardiovascular: absent: Chest Pain, Dyspnea - Respiratory Respiratory: absent: Cough, Wheezing - Gastrointestinal Gastrointestinal: absent: Nausea, Vomiting - Genitourinary Genitourinary: absent: Difficulty Urinating, Dysuria - Reproductive: Male Additional comments: scrotal swelling - Musculoskeletal Musculoskeletal: Muscle Weakness (bilateral lower extremity) - Neurological Neurological: absent: Confusion - Psychiatric Psychiatric: absent: Anxiety - Endocrine Endocrine: absent: Polyphagia, Polyuria - Hematologic/Lymphatic Hematologic: absent: Easy Bleeding, Easy Bruising Past Patient History - Past Medical History & Family History Past Medical History?: Yes - Past Social History Smoking Status: Never Smoked - CARDIAC Hx Cardiac Disorders: Yes Hx Peripheral Edema: Yes (right ankle) - PULMONARY Hx Respiratory Disorders: Yes Hx Pulmonary Embolism: Yes (09/2014) - NEUROLOGICAL Hx Neurological Disorder: No - HEENT Hx HEENT Problems: No - RENAL Hx Chronic Kidney Disease: No - ENDOCRINE/METABOLIC Hx Endocrine Disorders: No - HEMATOLOGICAL/ONCOLOGICAL Hx Cancer: Yes (prostate; seed implants) Hx Human Immunodeficiency Virus (HIV): No - INTEGUMENTARY Hx Dermatological Problems: No - MUSCULOSKELETAL/RHEUMATOLOGICAL Hx Musculoskeletal Disorders: Yes Hx Falls: Yes (1 month ago) - GASTROINTESTINAL Hx Gastrointestinal Disorders: Yes Hx Gall Bladder Disease: Yes (porcelain GB) - GENITOURINARY/GYNECOLOGICAL Hx Prostate Cancer: Yes - PSYCHIATRIC Hx Psychophysiologic Disorder: No Hx Substance Use: No - SURGICAL HISTORY Hx Surgeries: No Other/Comment: PROSTATE SEED IMPLANT 2002 - ANESTHESIA Hx Anesthesia: Yes Hx Anesthesia Reactions: No Hx Malignant Hyperthermia: No Meds Allergies/Adverse Reactions: Allergies Allergy/AdvReac Type Severity Reaction Status Date / Time No Known Allergies Allergy Verified 09/19/14 12:39 Physical Exam - Constitutional Appears: No Acute Distress - Head Exam Head Exam: ATRAUMATIC, NORMOCEPHALIC - Eye Exam Eye Exam: EOMI - ENT Exam ENT Exam: Mucous Membranes Moist - Neck Exam Neck exam: Negative for: Lymphadenopathy - Respiratory Exam Respiratory Exam: Clear to Auscultation Bilateral, NORMAL BREATHING PATTERN - Cardiovascular Exam Cardiovascular Exam: REGULAR RHYTHM, +S1, +S2 - GI/Abdominal Exam GI & Abdominal Exam: Normal Bowel Sounds, Soft. absent: Tenderness - Exam Exam: Scrotal Swelling - Extremities Exam Extremities exam: Positive for: pedal edema (bilateral +2 up to thigh). Negative for: calf tenderness - Neurological Exam Neurological exam: Alert, CN II-XII Intact, Oriented x3 - Psychiatric Exam Psychiatric exam: Normal Affect, Normal Mood - Skin Skin Exam: Dry, Warm Results - Vital Signs Recent Vital Signs: Last Vital Signs Temp 97.1 F L 01/07/19 22:48 Pulse 86 01/07/19 22:48 Resp 20 01/07/19 22:48 BP 149/97 H 01/07/19 22:48 Pulse Ox 99 01/07/19 22:48 - Labs Result Diagrams: 01/08/19 06:55 01/08/19 06:55 Assessment & Plan - Assessment and Plan (Free Text) Assessment: 88 yr old M admitted to TCU for significant bilateral lower extremity weakness and swelling with gait instability s/p discharge from med/surg where patient was treated for acute GI bleed. Patient has PMHX of RLE DVT's, 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 Vascular surgery was consulted and recommendation is for conservative treatment at this time is for CORNELIA bandages to bilateral lower extremities. Patient was evaluated by physical therapy and recommendation is TCU. Patient is stable for PT/OT. 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 Crockett -monitor vital signs DVT prophylaxis -SCD's (hold anticoagulation due to recent GI bleed) - Date & Time Date: 01/08/19 Time: 07:18 <Ericka Nagel - Last Filed: 01/08/19 13:56> Results - Vital Signs Recent Vital Signs: Last Vital Signs Temp 98.9 F 01/08/19 09:53 Pulse 81 01/08/19 09:53 Resp 20 01/08/19 09:53 BP 130/84 01/08/19 09:53 Pulse Ox 97 01/08/19 09:53 - Labs Result Diagrams: 01/08/19 06:55 01/08/19 06:55 Labs: Laboratory Results - last 24 hr 01/08/19 01/08/19 06:55 06:55 WBC 9.0 RBC 3.52 L Hgb 11.4 L Hct 34.3 L MCV 97.3 H MCH 32.3 H MCHC 33.2 RDW 13.7 Plt Count 170 MPV 7.9 Neut % (Auto) 77.7 H Lymph % (Auto) 12.2 L [place] % (Auto) 8.3 Eos % (Auto) 1.3 Baso % (Auto) 0.5 Neut # (Auto) 7.0 Lymph # (Auto) 1.1 [place] # (Auto) 0.7 Eos # (Auto) 0.1 Baso # (Auto) 0.0 Sodium 136 Potassium 4.0 Chloride 104 Carbon Dioxide 25 Anion Gap 11 BUN 23 H Creatinine 1.0 Est GFR ( Amer) > 60 Est GFR (Non-Af Amer) > 60 Random Glucose 95 Calcium 8.1 L Attending/Attestation - Attestation I have personally seen and examined this patient.: Yes I have fully participated in the care of the patient.: Yes I have reviewed all pertinent clinical information: Yes Notes (Text): Physical Deconditioning Recent Gastrointestinal Bleed Non bleeding Duodenal Ulcers, Gastitis, Hiatal Hernia seen on EGD Diverticulosis, Internal Hemorrhoids Acute/ subacute DVT to RLE , IVC Filter in place Lower back pain/ gait instability EGD and Colonoscopy done- no active GI bleeding , H/H stable Pt has IVC in place No anticoagulation since patient is high risk for GI Bleed Physical therapy CORNELIA wrap of Bilat LE due to edema as rec by Vascular Surgery
[2019-01-08 07:40] LABS: BASO % 0.5 % (0.0-2.0); EOS # 0.1 K/uL (0.0-0.7); EOS % 1.3 % (0.0-4.0); HEMOGLOBIN 11.4 g/dL (12.0-18.0); LYMPH # 1.1 K/uL (1.0-4.3); LYMPH % 12.2 % (20.0-40.0); MEAN CELL VOLUME 97.3 fl (80.0-94.0); MEAN CORPUSCULAR HEMOGLOBIN 32.3 pg (27.0-31.0); MEAN CORPUSCULAR HGB CONC 33.2 g/dL (33.0-37.0); MEAN PLATELET VOLUME 7.9 fl (7.2-11.7); MONO # 0.7 K/uL (0.0-0.8); MONO % 8.3 % (0.0-10.0); NEUT % 77.7 % (50.0-75.0); NRBC % 0.1 % (0.0-0.0); RBC 3.52 Mil/uL (4.40-5.90); RED CELL DISTRIBUTION WIDTH 13.7 % (11.5-14.5)
[2019-01-08 07:47] LABS: BLOOD UREA NITROGEN 23 mg/dl (9-20); CALCIUM 8.1 mg/dL (8.4-10.2); GFR NON-AFRICAN AMERICAN > 60
[2019-01-08] MEDS: Pantoprazole 40 mg EC Tab PO SCH (09:42)
[2019-01-08] MEDS: Lidocaine 5% Patch TD SCH (09:42)
[2019-01-08] MEDS: Multi Vitamins 15 mL UD Oral Solution PO SCH (10:12)
[2019-01-09] MEDS: Lidocaine 5% Patch TD SCH (08:52)
[2019-01-09] MEDS: Pantoprazole 40 mg EC Tab PO SCH (08:52)
[2019-01-09] MEDS: Multi Vitamins 15 mL UD Oral Solution PO SCH (08:52)
[2019-01-10] MEDS: Lidocaine 5% Patch TD SCH (08:48)
[2019-01-10] MEDS: Multi Vitamins 15 mL UD Oral Solution PO SCH (08:48)
[2019-01-10] MEDS: Pantoprazole 40 mg EC Tab PO SCH (08:49)
--- NOTE | 2019-01-10 11:12 | CP.PCM.CON ---
History of Present Illness - History of Present Illness History of Present Illness: This 88 year old male was initially admitted to acute medicine with an acute GI bleed after presenting to the emergency room because of bilateral leg edema, abdominal discomfort and poor appetite. While in the ER he had a bloody bowel movement and was admitted. He underwent EGD and colonoscopy with findings of multiple duodenal ulcer and diffuse diverticulosis. He is noted to have bilateral chronic DVT of both legs and had an IVC filter implanted in 2014 after having had acute DVT and bilateral PEs. He has noted increasing edema which has been progressing over the last few weeks. Review of Systems - Review of Systems All systems: reviewed and no additional remarkable complaints except - Cardiovascular Cardiovascular: Pedal Edema Past Patient History - Past Medical History & Family History Past Medical History?: Yes - Past Social History Smoking Status: Never Smoked Chewing Tobacco Use: No Cigar Use: No Alcohol: Social Drugs: Denies Home Situation {Lives}: With Family - CARDIAC Hx Cardiac Disorders: Yes Hx Peripheral Edema: Yes - PULMONARY Hx Pulmonary Embolism: Yes (09/2014) - NEUROLOGICAL Hx Neurological Disorder: No - HEENT Hx HEENT Problems: No - RENAL Hx Chronic Kidney Disease: No - ENDOCRINE/METABOLIC Hx Endocrine Disorders: No - HEMATOLOGICAL/ONCOLOGICAL Hx Cancer: Yes (prostate; seed implants) Hx Human Immunodeficiency Virus (HIV): No - INTEGUMENTARY Hx Dermatological Problems: Yes Other/Comment: skin cancer removed from back - MUSCULOSKELETAL/RHEUMATOLOGICAL Hx Falls: Yes (1 month ago) - GASTROINTESTINAL Hx Gall Bladder Disease: Yes (porcelain GB) - GENITOURINARY/GYNECOLOGICAL Hx Prostate Cancer: Yes - PSYCHIATRIC Hx Psychophysiologic Disorder: No Hx Substance Use: No - SURGICAL HISTORY Hx Cholecystectomy: Yes Other/Comment: PROSTATE SEED IMPLANT 2002. IVC FILTER IMPLANT - ANESTHESIA Hx Anesthesia: Yes Hx Anesthesia Reactions: No Hx Malignant Hyperthermia: No Meds Allergies/Adverse Reactions: Allergies Allergy/AdvReac Type Severity Reaction Status Date / Time No Known Allergies Allergy Verified 09/19/14 12:39 - Medications Medications: Current Medications Acetaminophen (Tylenol 325mg Tab) 650 mg PO Q6 PRN PRN Reason: Fever >100.4 F Lidocaine (Lidoderm) 1 ea TD DAILY [facility] Last Admin: 01/10/19 08:48 Dose: Not Given Multivitamins/Vitamin C (Multi-Delyn Liquid) 15 ml PO DAILY [facility] Last Admin: 01/10/19 08:48 Dose: 15 ml Pantoprazole Sodium (Protonix Ec Tab) [address] [facility] Last Admin: 01/10/19 08:49 Dose: 40 mg Spironolactone (Aldactone) 12.[address] [facility] Physical Exam - Additional Findings Additional findings: Awake, alert and oriented x 3. Dependant edema of the legs bilaterally from feet to thighs. No cyanosis, extremities are pink and warm. No palpable lymphadenopathy. Neck is supple and trachea midline. No dullness on chest percussion.Breath sounds well heard bilaterally. No rales or wheezes, no bronchial breath sounds. Heart sounds are well heard, rhythm regular with PHBs, soft systolic murmur at apex. Abdomen is soft and non-tender with + bowel sounds. Results - Vital Signs Recent Vital Signs: Last Vital Signs Temp 98.5 F 01/10/19 07:58 Pulse 80 01/10/19 07:58 Resp 20 01/10/19 07:58 BP 125/78 01/10/19 07:58 Pulse Ox 96 01/10/19 07:58 - Labs Result Diagrams: 01/08/19 06:55 01/12/19 05:15 Labs: Laboratory Results - last 24 hr 01/10/19 07:50 Prostate Specific Ag < 0.064 Assessment & Plan (1) Bilateral lower extremity edema Status: Chronic Priority: Medium (2) DVT (deep venous thrombosis) Status: Chronic Priority: Medium (3) Prostate cancer Status: Inactive Priority: High (4) Pulmonary embolism and infarction Status: Resolved Priority: High (5) GI bleed Status: Resolved Priority: Medium - Assessment and Plan (Free Text) Plan: Begin low dose diuresis as tolerated, monitoring vitals and renal function. EKG and echocardiogram eval/screening. Physical therapy as tolerated. - Date & Time Date: 01/10/19 Time: 11:12
--- NOTE | 2019-01-10 19:22 | CARD ---
APPROVED REPORT Date of service: 01/10/2019 EKG Measurement Heart [id number] <Conclusion> Sinus tachycardia with premature atrial complexes Nonspecific ST and T wave abnormality Inferior infarct, age indeterminate Abnormal ECG
[2019-01-11] MEDS: Multi Vitamins 15 mL UD Oral Solution PO SCH (09:00)
[2019-01-11] MEDS: Pantoprazole 40 mg EC Tab PO SCH (09:00)
[2019-01-11] MEDS: Lidocaine 5% Patch TD SCH (09:01)
--- NOTE | 2019-01-11 11:00 | US ---
Date of service: 01/10/2019 HISTORY: Swelling TECHNIQUE: Realtime sonography through the scrotum with color and doppler flow. COMPARISON: None Available. FINDINGS: RIGHT TESTICLE: Measures 3.4 x 2.2 x 2.3 cm. Normal echotexture and flow. RIGHT EPIDIDYMIS: Epididymal head measures 1.27 x 0.64 x 0.79 cm. Grossly unremarkable appearance with normal flow. LEFT TESTICLE: Measures 3.0 x 2.0 x 2.0 cm. Normal echotexture and flow. LEFT EPIDIDYMIS: Epididymal head measures 0.98 x 0.95 x 0.63 cm. Grossly unremarkable appearance with normal flow. HYDROCELE: None. VARICOCELE: Small left varicocele. OTHER FINDINGS: There is severe scrotal wall edema. IMPRESSION: 1. No evidence for testicular mass or torsion. 2. Severe scrotal wall edema. 3. Small left varicocele. A preliminary report was provided by [employer].
--- NOTE | 2019-01-11 11:16 | CP.PCM.PN ---
Subjective - Date & Time of Evaluation Date of Evaluation: 01/11/19 Time of Evaluation: 11:14 - Subjective Subjective: Seen on rounds, seated in a bedside chair. Ultrasound of scrotum was done yesterday, results pending. Vital signs remain stable. Started on spironolactone yesterday, LE edema seems to be decreasing slowly. Will monitor BMP with introduction of diuretic therapy. Continue physical therapy as tolerated. Objective - Vital Signs/Intake and Output Vital Signs (last 24 hours): Temp Pulse Resp BP Pulse Ox 97.9 F 76 20 123/68 94 L 01/11/19 10:41 01/11/19 10:41 01/11/19 10:41 01/11/19 10:41 01/11/19 10:41 - Medications Medications: Current Medications Acetaminophen (Tylenol 325mg Tab) 650 mg PO Q6 PRN PRN Reason: Fever >100.4 F Lactic Acid (Lac-Hydrin 12% Lotion (225 G)) 1 applic TOP BID [facility] Last Admin: 01/11/19 09:00 Dose: 1 applic Lidocaine (Lidoderm) 1 ea TD DAILY [facility] Last Admin: 01/11/19 09:01 Dose: Not Given Multivitamins/Vitamin C (Multi-Delyn Liquid) 15 ml PO DAILY [facility] Last Admin: 01/11/19 09:00 Dose: 15 ml Pantoprazole Sodium (Protonix Ec Tab) 40 mg PO DAILY [facility] Last Admin: 01/11/19 09:00 Dose: 40 mg Spironolactone (Aldactone) 12.5 mg PO BID [facility] Last Admin: 01/11/19 09:00 Dose: 12.5 mg - Labs Labs: 01/08/19 06:55 01/08/19 06:55 Assessment and Plan (1) Bilateral lower extremity edema Status: Chronic (2) DVT (deep venous thrombosis) Status: Chronic (3) GI bleed Status: Resolved (4) Prostate cancer Status: Inactive
--- NOTE | 2019-01-11 12:09 | CP.PCM.PN ---
Subjective - Date & Time of Evaluation Date of Evaluation: 01/11/19 Time of Evaluation: 12:09 - Subjective Subjective: doing well no complaints hd stable Objective - Vital Signs/Intake and Output Vital Signs (last 24 hours): Temp Pulse Resp BP Pulse Ox 97.9 F 76 20 123/68 94 L 01/11/19 10:41 01/11/19 10:41 01/11/19 10:41 01/11/19 10:41 01/11/19 10:41 - Medications Medications: Current Medications Acetaminophen (Tylenol 325mg Tab) 650 mg PO Q6 PRN PRN Reason: Fever >100.4 F Lactic Acid (Lac-Hydrin 12% Lotion (225 G)) 1 applic TOP BID [facility] Last Admin: 01/11/19 09:00 Dose: 1 applic Lidocaine (Lidoderm) 1 ea TD DAILY [facility] Last Admin: 01/11/19 09:01 Dose: Not Given Multivitamins/Vitamin C (Multi-Delyn Liquid) 15 ml PO DAILY [facility] Last Admin: 01/11/19 09:00 Dose: 15 ml Pantoprazole Sodium (Protonix Ec Tab) 40 mg PO DAILY [facility] Last Admin: 01/11/19 09:00 Dose: 40 mg Spironolactone (Aldactone) 12.5 mg PO BID [facility] Last Admin: 01/11/19 09:00 Dose: 12.5 mg - Labs Labs: 01/08/19 06:55 01/08/19 06:55 - Constitutional Appears: Non-toxic, No Acute Distress - Head Exam Head Exam: ATRAUMATIC, NORMOCEPHALIC - Eye Exam Eye Exam: EOMI, Normal appearance - ENT Exam ENT Exam: Mucous Membranes Moist, Normal Oropharynx - Respiratory Exam Respiratory Exam: Clear to Ausculation Bilateral, NORMAL BREATHING PATTERN - Cardiovascular Exam Cardiovascular Exam: RRR, +S1, +S2 - GI/Abdominal Exam GI & Abdominal Exam: Soft, Normal Bowel Sounds - Back Exam Back Exam: absent: CVA tenderness (L), CVA tenderness (R) - Neurological Exam Neurological Exam: Alert, Awake - Psychiatric Exam Psychiatric exam: Normal Affect, Normal Mood - Skin Skin Exam: Dry, Warm Assessment and Plan - Assessment and Plan (Free Text) Plan: 88 yr old M admitted to TCU for significant bilateral lower extremity weakness and swelling with gait instability s/p discharge from med/surg where patient was treated for acute GI bleed. Patient has PMHX of RLE DVT's, 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 Vascular surgery was consulted and recommendation is for conservative treatment at this time is for CORNELIA bandages to bilateral lower extremities. Patient was evaluated by physical therapy and recommendation is TCU. Patient is stable for PT/OT. 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 Crockett -monitor vital signs DVT prophylaxis -SCD's (hold anticoagulation due to recent GI bleed)
[2019-01-12 06:46] LABS: BLOOD UREA NITROGEN 24 mg/dl (9-20); CALCIUM 8.1 mg/dL (8.4-10.2); GFR NON-AFRICAN AMERICAN > 60
[2019-01-12] MEDS: Multi Vitamins 15 mL UD Oral Solution PO SCH (09:18)
[2019-01-12] MEDS: Pantoprazole 40 mg EC Tab PO SCH (09:19)
[2019-01-12] MEDS: Lidocaine 5% Patch TD SCH (09:23)
[2019-01-13] MEDS: Lidocaine 5% Patch TD SCH (10:03)
[2019-01-13] MEDS: Multi Vitamins 15 mL UD Oral Solution PO SCH (10:03)
[2019-01-13] MEDS: Pantoprazole 40 mg EC Tab PO SCH (10:04)
--- NOTE | 2019-01-13 11:43 | CP.PCM.PN ---
Subjective - Date & Time of Evaluation Date of Evaluation: 01/13/19 Time of Evaluation: 11:40 - Subjective Subjective: Persistent edema of LEs extending above the knees. Has been on low dose spironolactone. Had recent echocardiogram on 01/10 with questionable a fib? and elevated RVSP. Routine EKG showed sinus tach with frequent PHBs. Vital signs remain stable and he is well oxygenated. Will ask Dr Onael to evaluate. Objective - Vital Signs/Intake and Output Vital Signs (last 24 hours): Temp Pulse Resp BP Pulse Ox 98.7 F 76 20 113/70 95 01/13/19 07:52 01/13/19 10:19 01/13/19 07:52 01/13/19 10:19 01/13/19 10:19 - Medications Medications: Current Medications Acetaminophen (Tylenol 325mg Tab) 650 mg PO Q6 PRN PRN Reason: Fever >100.4 F Lactic Acid (Lac-Hydrin 12% Lotion (225 G)) 1 applic TOP BID [facility] Last Admin: 01/13/19 10:03 Dose: 1 applic Lidocaine (Lidoderm) 1 ea TD DAILY [facility] Last Admin: 01/13/19 10:03 Dose: 1 ea Multivitamins/Vitamin C (Multi-Delyn Liquid) 15 ml PO DAILY [facility] Last Admin: 01/13/19 10:03 Dose: 15 ml Pantoprazole Sodium (Protonix Ec Tab) 40 mg PO DAILY [facility] Last Admin: 01/13/19 10:04 Dose: 40 mg Spironolactone (Aldactone) 12.5 mg PO BID [facility] Last Admin: 01/13/19 10:03 Dose: 12.5 mg - Labs Labs: 01/08/19 06:55 01/12/19 05:15 Assessment and Plan (1) Bilateral lower extremity edema Status: Chronic (2) DVT (deep venous thrombosis) Status: Chronic (3) GI bleed Status: Resolved (4) Prostate cancer Status: Inactive
--- NOTE | 2019-01-13 15:13 | CP.PCM.PN ---
Subjective - Date & Time of Evaluation Date of Evaluation: 01/13/19 Time of Evaluation: 12:15 - Subjective Subjective: Patient seen and examined. Complained of persistent swelling of both legs reaching up to his genitals. Denied SOB. Objective - Vital Signs/Intake and Output Vital Signs (last 24 hours): Temp Pulse Resp BP Pulse Ox 98.7 F 76 20 113/70 95 01/13/19 07:52 01/13/19 10:19 01/13/19 07:52 01/13/19 10:19 01/13/19 10:19 - Medications Medications: Current Medications Acetaminophen (Tylenol 325mg Tab) 650 mg PO Q6 PRN PRN Reason: Fever >100.4 F Lactic Acid (Lac-Hydrin 12% Lotion (225 G)) 1 applic TOP BID [facility] Last Admin: 01/13/19 10:03 Dose: 1 applic Lidocaine (Lidoderm) 1 ea TD DAILY [facility] Last Admin: 01/13/19 10:03 Dose: 1 ea Multivitamins/Vitamin C (Multi-Delyn Liquid) 15 ml PO DAILY [facility] Last Admin: 01/13/19 10:03 Dose: 15 ml Pantoprazole Sodium (Protonix Ec Tab) 40 mg PO DAILY [facility] Last Admin: 01/13/19 10:04 Dose: 40 mg Spironolactone (Aldactone) 12.5 mg PO BID [facility] Last Admin: 01/13/19 10:03 Dose: 12.5 mg - Labs Labs: 01/08/19 06:55 01/12/19 05:15 - Constitutional Appears: No Acute Distress - Head Exam Head Exam: ATRAUMATIC - Eye Exam Eye Exam: absent: Scleral icterus - ENT Exam ENT Exam: Mucous Membranes Moist - Neck Exam Neck Exam: absent: Meningismus - Respiratory Exam Respiratory Exam: absent: Rales, Rhonchi, Wheezes, Respiratory Distress - Cardiovascular Exam Cardiovascular Exam: REGULAR RHYTHM, +S1, +S2 - GI/Abdominal Exam GI & Abdominal Exam: Soft. absent: Tenderness - Rectal Exam Rectal Exam: Deferred - Extremities Exam Extremities Exam: Pedal Edema (3+ extending to genital area) - Neurological Exam Neurological Exam: Alert, Oriented x3 - Psychiatric Exam Psychiatric exam: Normal Affect - Skin Skin Exam: Dry, Intact Assessment and Plan - Assessment and Plan (Free Text) Assessment: 88 yo male with history of DVT with IVC filter and PE was admitted initially because of GI bleed. Anticoagulant was DC and patient had endoscopy which showed non-bleeding duodenal ulcers. Patient was also noted to have increased pedal edema extending to the genital area. Patient was transferred to TCU for further management and therapy. 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 Crockett -monitor vital signs DVT prophylaxis -SCD's (hold anticoagulation due to recent GI bleed)
[2019-01-14] MEDS: Multi Vitamins 15 mL UD Oral Solution PO SCH (09:00)
[2019-01-14] MEDS: Pantoprazole 40 mg EC Tab PO SCH (09:00)
[2019-01-14] MEDS: Lidocaine 5% Patch TD SCH (09:00)
--- NOTE | 2019-01-14 09:18 | CP.PCM.CON ---
History of Present Illness - History of Present Illness History of Present Illness: I HAVE BEEN ASKED TO SEE THIS PATIENT WHO HAS UNDERLYING SINUS RHYTHM DUE TO A MENTION ON THE ECHOCARDIOGRAM REPORT OF HIM BEING IN ATRIAL FIBRILLATION. I KNOW THE PATIENT FROM [facility] AND HE HAD BILAT LE DVTS AND BILATER AL PES AND HAD AN IVC FILTER INSERTION AND WAS ON THROMBOLYTICS FOR MONTHS AFTERWARDS. HE NORMALLY HAS SINUS RHYTHM WITH OCCASIONAL SINGLE PACS AND RARE SINGLE PVCS. HE WAS ADMITTED [place] [address] [place] [address] FOR A GI BLEED WITH BLOODY BOWEL MOVEMENTS. HE STATES HE FELT WEEK AND TIRED AT HOME AND GOT LIGHTHEADED AND HAD LEG SWELLING SO HE WENT TO THE ER AND HAD ANOTHER BLOODY BM SO HE WAS ADMITTED FOR A GI BLEED AND DUODENAL ULCERS WERE FOUND ON ENDOSCOPY. HE DENIES CHEST PAIN OR SOB AND FEELS STRONGER NOW. HE IS PRESENTLY IN TCU FOR RONI DUE TO DECONDITIONING. Past Patient History - Past Medical History & Family History Past Medical History?: Yes - Past Social History Smoking Status: Never Smoked Chewing Tobacco Use: No Cigar Use: No Alcohol: Social Drugs: Denies Home Situation {Lives}: With Family - CARDIAC Hx Cardiac Disorders: Yes Hx Peripheral Edema: Yes - PULMONARY Hx Pulmonary Embolism: Yes (09/2014) - NEUROLOGICAL Hx Neurological Disorder: No - HEENT Hx HEENT Problems: No - RENAL Hx Chronic Kidney Disease: No - ENDOCRINE/METABOLIC Hx Endocrine Disorders: No - HEMATOLOGICAL/ONCOLOGICAL Hx Cancer: Yes (prostate; seed implants) Hx Human Immunodeficiency Virus (HIV): No - INTEGUMENTARY Hx Dermatological Problems: Yes Other/Comment: skin cancer removed from back - MUSCULOSKELETAL/RHEUMATOLOGICAL Hx Falls: Yes (1 month ago) - GASTROINTESTINAL Hx Gall Bladder Disease: Yes (porcelain GB) - GENITOURINARY/GYNECOLOGICAL Hx Prostate Cancer: Yes - PSYCHIATRIC Hx Psychophysiologic Disorder: No Hx Substance Use: No - SURGICAL HISTORY Hx Cholecystectomy: Yes Other/Comment: PROSTATE SEED IMPLANT 2002. IVC FILTER IMPLANT - ANESTHESIA Hx Anesthesia: Yes Hx Anesthesia Reactions: No Hx Malignant Hyperthermia: No Meds Allergies/Adverse Reactions: Allergies Allergy/AdvReac Type Severity Reaction Status Date / Time No Known Allergies Allergy Verified 09/19/14 12:39 - Medications Medications: Current Medications Acetaminophen (Tylenol 325mg Tab) 650 mg PO Q6 PRN PRN Reason: Fever >100.4 F Lactic Acid (Lac-Hydrin 12% Lotion (225 G)) 1 applic TOP BID [facility] Last Admin: 01/14/19 08:59 Dose: 1 applic Lidocaine (Lidoderm) 1 ea TD DAILY [facility] Last Admin: 01/14/19 09:00 Dose: Not Given Multivitamins/Vitamin C (Multi-Delyn Liquid) 15 ml PO DAILY [facility] Last Admin: 01/14/19 09:00 Dose: 15 ml Pantoprazole Sodium (Protonix Ec Tab) 40 mg PO DAILY [facility] Last Admin: 01/14/19 09:00 Dose: 40 mg Spironolactone (Aldactone) 12.5 mg PO BID [facility] Last Admin: 01/14/19 08:59 Dose: 12.5 mg Physical Exam - Respiratory Exam Respiratory Exam: Clear to Auscultation Bilateral - Cardiovascular Exam Cardiovascular Exam: Irregular Rhythm, +S1, +S2, Systolic Murmur - Extremities Exam Additional comments: SOME LE EDEMA - Additional Findings Additional findings: EKG ST, R 107, FRQUENT PACS, NSSTT CHANGES(READ PRIOR IWMI BY THE MACHINE BUT I DISAGREE THERE ARE SMALL R WAVE BLIPS IN INFERIOR LEADS 3 AND F) THE ECHOCARDIOGRAM WAS REVIEWED BY ME AND BY CONVENTION HAS A SINGLE RHYTHM STRIP RUNNING AT THE BOTTOM DURING THE STUDY. THERE WERE MANY FRAMES AND DUE TO PATIENT MOVEMENT WHICH IS NEEDED FOR A COMPLETE STUDY THE RHYTHM STRIP SHOWED ARTEFACT IN MANY FRAMES WHICH CAN EASILY APPEAR ATRIAL FIBRILLATION, BUT THERE WERE SEVERAL FRAMES WHERE THERE WASN'T ANY ARTEFACT AND THE RHYTHM WAS CLEARLY SINUS WITH MODERATE SINGLE PACS AND RARE SINGLE PVCS, LVEF OF 55-60% AND MILD MR AND MILD TR K+ 3.9 H/H Results - Vital Signs Recent Vital Signs: Last Vital Signs Temp 98.2 F 01/14/19 08:30 Pulse 77 01/14/19 08:30 Resp 20 01/14/19 08:30 BP 115/71 01/14/19 08:30 Pulse Ox 95 01/14/19 08:30 - Labs Result Diagrams: 01/23/19 05:30 01/23/19 05:30 Assessment & Plan - Assessment and Plan (Free Text) Assessment: THE PATIENT IS IN SINUS RHYTHM WITHS SINGLE PACS AND SINGLE PACS AND NOT IN ATRIAL FIBRILLATION STABLE CARDIAC STATUS PUD WITH GI BLEED HISTORY OF BILAT DVTS AND PES WITH IVC UMBRELLA INSERTION IN 2014 Plan: NO SPECIAL TREATMENT NEEDED FOR SINUS RHYTHM WITH BENIGN PACS AND PVCS CONTINUE PROTONIX
[2019-01-15 08:33] LABS: BLOOD UREA NITROGEN 21 mg/dl (9-20); CALCIUM 8.2 mg/dL (8.4-10.2); GFR NON-AFRICAN AMERICAN > 60
[2019-01-15] MEDS: Multi Vitamins 15 mL UD Oral Solution PO SCH (10:53)
[2019-01-15] MEDS: Lidocaine 5% Patch TD SCH ×2 (10:54→11:01)
[2019-01-15] MEDS: Pantoprazole 40 mg EC Tab PO SCH (10:54)
[2019-01-16] MEDS: hydroCHLOROthiazide-Triamterene 25 mg-37.5 mg Cap UD PO SCH (08:22)
[2019-01-16] MEDS: Multi Vitamins 15 mL UD Oral Solution PO SCH (08:23)
[2019-01-16] MEDS: Lidocaine 5% Patch TD SCH (08:23)
[2019-01-16] MEDS: Pantoprazole 40 mg EC Tab PO SCH (08:23)
--- NOTE | 2019-01-16 12:10 | CP.PCM.PN ---
Subjective - Date & Time of Evaluation Date of Evaluation: 01/16/19 Time of Evaluation: 11:40 - Subjective Subjective: NO CHEST PAIN OR SOB Objective - Vital Signs/Intake and Output Vital Signs (last 24 hours): Temp Pulse Resp BP Pulse Ox 97.4 F L 88 20 107/68 94 L 01/16/19 08:08 01/16/19 08:08 01/16/19 08:08 01/16/19 08:08 01/16/19 08:08 - Medications Medications: Current Medications Acetaminophen (Tylenol 325mg Tab) 650 mg PO Q6 PRN PRN Reason: Fever >100.4 F Lactic Acid (Lac-Hydrin 12% Lotion (225 G)) 1 applic TOP BID [facility] Last Admin: 01/16/19 08:23 Dose: 1 applic Lidocaine (Lidoderm) 1 ea TD DAILY [facility] Last Admin: 01/16/19 08:23 Dose: Not Given Multivitamins/Vitamin C (Multi-Delyn Liquid) 15 ml PO DAILY [facility] Last Admin: 01/16/19 08:23 Dose: 15 ml Pantoprazole Sodium (Protonix Ec Tab) 40 mg PO DAILY [facility] Last Admin: 01/16/19 08:23 Dose: 40 mg Triamterene/HCTZ (Dyazide 25 Mg-37.5 Mg) 1 cap PO DAILY [facility] Last Admin: 01/16/19 08:22 Dose: 1 cap - Labs Labs: 01/08/19 06:55 01/15/19 06:05 - Respiratory Exam Respiratory Exam: Clear to Ausculation Bilateral - Cardiovascular Exam Cardiovascular Exam: +S1, +S2 Additional comments: UNDERLYING RHYTHM IS REGULAR WITH EXTRASYSTOLES - Extremities Exam Extremities Exam: Pedal Edema Assessment and Plan - Assessment and Plan (Free Text) Assessment: SINUS RHYTHM WITH BENIGN PACS AND PVCS PUD WITH GI BLEED HISTORY OF BILAT DVT AND PE Plan: CONTINUE DYAZIDE AND PROTONIX
[2019-01-17] MEDS: hydroCHLOROthiazide-Triamterene 25 mg-37.5 mg Cap UD PO SCH (08:04)
[2019-01-17] MEDS: Pantoprazole 40 mg EC Tab PO SCH (08:05)
[2019-01-17] MEDS: Multi Vitamins 15 mL UD Oral Solution PO SCH (08:05)
[2019-01-17] MEDS: Lidocaine 5% Patch TD SCH (08:05)
--- NOTE | 2019-01-17 10:13 | CP.PCM.PN ---
Subjective - Date & Time of Evaluation Date of Evaluation: 01/17/19 Time of Evaluation: 10:11 - Subjective Subjective: Seen on morning rounds, presently in the gym. Interim events reviewed. Appears stable. Active in PT. Vital signs remain stable. Dependant edema appears slightly less prominent. Area of purpura of right distal pre-tibial area persists. Small similar area noted on the LLE as well. Vital signs have remained stable, PT progressing. Continue current regimen. May consider dermatology eval. Objective - Vital Signs/Intake and Output Vital Signs (last 24 hours): Temp Pulse Resp BP Pulse Ox 98.2 F 110 H 18 137/88 97 01/17/19 08:17 01/17/19 09:23 01/17/19 08:17 01/17/19 09:23 01/17/19 09:23 - Medications Medications: Current Medications Acetaminophen (Tylenol 325mg Tab) 650 mg PO Q6 PRN PRN Reason: Fever >100.4 F Lactic Acid (Lac-Hydrin 12% Lotion (225 G)) 1 applic TOP BID [facility] Last Admin: 01/17/19 08:08 Dose: 1 applic Lidocaine (Lidoderm) 1 ea TD DAILY [facility] Last Admin: 01/17/19 08:05 Dose: Not Given Multivitamins/Vitamin C (Multi-Delyn Liquid) 15 ml PO DAILY [facility] Last Admin: 01/17/19 08:05 Dose: 15 ml Pantoprazole Sodium (Protonix Ec Tab) 40 mg PO DAILY [facility] Last Admin: 01/17/19 08:05 Dose: 40 mg Triamterene/HCTZ (Dyazide 25 Mg-37.5 Mg) 1 cap PO DAILY [facility] Last Admin: 01/17/19 08:04 Dose: 1 cap - Labs Labs: 01/08/19 06:55 01/15/19 06:05 Assessment and Plan (1) Bilateral lower extremity edema Status: Chronic (2) DVT (deep venous thrombosis) Status: Chronic (3) Prostate cancer Status: Inactive (4) Pulmonary embolism and infarction Status: Resolved (5) GI bleed Status: Resolved
--- NOTE | 2019-01-18 09:15 | CP.PCM.PN ---
<SalazarMikayla - Last Filed: 01/18/19 15:41> Subjective - Date & Time of Evaluation Date of Evaluation: 01/18/19 Time of Evaluation: 09:15 - Subjective Subjective: Patient seen and examined at bedside. Denies chest pain, SOB or dizziness. Reports tolerating PT. Bilateral lower extremity swelling persists but has improved. Objective - Vital Signs/Intake and Output Vital Signs (last 24 hours): Temp Pulse Resp BP Pulse Ox 98.2 F 85 20 122/80 96 01/17/19 21:00 01/17/19 21:00 01/17/19 21:00 01/17/19 21:00 01/17/19 21:00 - Medications Medications: Current Medications Acetaminophen (Tylenol 325mg Tab) 650 mg PO Q6 PRN PRN Reason: Fever >100.4 F Lactic Acid (Lac-Hydrin 12% Lotion (225 G)) 1 applic TOP BID [facility] Last Admin: 01/17/19 16:51 Dose: 1 applic Lidocaine (Lidoderm) 1 ea TD DAILY [facility] Last Admin: 01/17/19 08:05 Dose: Not Given Multivitamins/Vitamin C (Multi-Delyn Liquid) 15 ml PO DAILY [facility] Last Admin: 01/17/19 08:05 Dose: 15 ml Pantoprazole Sodium (Protonix Ec Tab) 40 mg PO DAILY [facility] Last Admin: 01/17/19 08:05 Dose: 40 mg Triamterene/HCTZ (Dyazide 25 Mg-37.5 Mg) 1 cap PO DAILY [facility] Last Admin: 01/17/19 08:04 Dose: 1 cap - Labs Labs: 01/08/19 06:55 01/15/19 06:05 - Constitutional Appears: No Acute Distress - Head Exam Head Exam: ATRAUMATIC, NORMOCEPHALIC - Eye Exam Eye Exam: EOMI - ENT Exam ENT Exam: Mucous Membranes Moist - Respiratory Exam Respiratory Exam: Clear to Ausculation Bilateral, NORMAL BREATHING PATTERN - Cardiovascular Exam Cardiovascular Exam: REGULAR RHYTHM, +S1, +S2 - GI/Abdominal Exam GI & Abdominal Exam: Soft, Normal Bowel Sounds. absent: Tenderness - Extremities Exam Extremities Exam: Pedal Edema (+2 bilaterally) Additional comments: rightand left distal anterior tibial erythematous patch, blanchable, no discharge, skin intact, non pruritic - Neurological Exam Neurological Exam: Alert, Awake, Oriented x3 - Psychiatric Exam Psychiatric exam: Normal Affect, Normal Mood - Skin Skin Exam: Dry, Warm Assessment and Plan - Assessment and Plan (Free Text) Assessment: 88 yo male with history of DVT with IVC filter and PE was admitted initially because of GI bleed. Anticoagulant was DC and patient had endoscopy which showed non-bleeding duodenal ulcers. Patients pedal edema persists but has improved. Patient is in TCU for PT/OT and further management and therapy. Lower back pain, gait instability -recent onto lumbar/SI fall 1 month ago -Pelvis and lumbar spine xray showed no acute fracture or pathology -pain control with lidoderm patch and tylenol PRN -continue PT/OT Lower extremity edema/weakness -bilateral, with RLE erythematous patch -continue PT/OT -Vascular surgery was consulted:conservative treatment at this time is for CORNELIA bandages to bilateral lower extremities -elevate legs -Pulmonology on consult: Dr. Crockett: lower dose diuretic zaroxolyn 2.5 OD, 24hr holter and dermatology evaluation -Cardiology on consult: Dr. 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 Crockett -monitor vital signs DVT prophylaxis -SCD's (hold anticoagulation due to recent GI bleed) <Felipe Watters D - Last Filed: 01/18/19 18:49> Objective - Vital Signs/Intake and Output Vital Signs (last 24 hours): Temp Pulse Resp BP Pulse Ox 97.9 F 98 H 18 123/80 98 01/18/19 09:00 01/18/19 15:47 01/18/19 09:00 01/18/19 09:00 01/18/19 15:47 - Medications Medications: Current Medications Acetaminophen (Tylenol 325mg Tab) 650 mg PO Q6 PRN PRN Reason: Fever >100.4 F Lactic Acid (Lac-Hydrin 12% Lotion (225 G)) 1 applic TOP BID [facility] Last Admin: 01/18/19 16:52 Dose: 1 applic Lidocaine (Lidoderm) 1 ea TD DAILY [facility] Last Admin: 01/18/19 09:33 Dose: Not Given Metolazone (Zaroxolyn) 2.5 mg PO DAILY [facility] Last Admin: 01/18/19 12:06 Dose: 2.5 mg Multivitamins/Vitamin C (Multi-Delyn Liquid) 15 ml PO DAILY [facility] Last Admin: 01/18/19 09:32 Dose: 15 ml Pantoprazole Sodium (Protonix Ec Tab) 40 mg PO DAILY [facility] Last Admin: 01/18/19 09:32 Dose: 40 mg - Labs Labs: 01/08/19 06:55 01/15/19 06:05 Attending/Attestation - Attestation I have personally seen and examined this patient.: Yes I have fully participated in the care of the patient.: Yes I have reviewed all pertinent clinical information, including history, physical exam and plan: Yes Notes (Text): 01/18/19 18:48 Patient seen and examined with resident. Case discussed and agreed with assessment
[2019-01-18] MEDS: hydroCHLOROthiazide-Triamterene 25 mg-37.5 mg Cap UD PO SCH (09:32)
[2019-01-18] MEDS: Multi Vitamins 15 mL UD Oral Solution PO SCH (09:32)
[2019-01-18] MEDS: Pantoprazole 40 mg EC Tab PO SCH (09:32)
[2019-01-18] MEDS: Lidocaine 5% Patch TD SCH (09:33)
--- NOTE | 2019-01-18 09:41 | CP.PCM.PN ---
Subjective - Date & Time of Evaluation Date of Evaluation: 01/18/19 Time of Evaluation: 09:35 - Subjective Subjective: Interim events noted. Had tachycardia and O2 desaturation yesterday with PT. SpO2 now 96% on room air at rest. Has mild tachycardia with frequent PHBs. Lungs remain clear on auscultation. Heart sounds well heard, regularly irregular, systolic murmur at apex. Dependant edema ++ feet to knees bilaterally. Purpuric lesion RLE one area has decreased, but there is a new area of eruption. Will change diuretic to lower dose Zaroxolyn 2.5 OD. 24 hour holter monitor requested. Dermatology evaluation requested. Objective - Vital Signs/Intake and Output Vital Signs (last 24 hours): Temp Pulse Resp BP Pulse Ox 98.2 F 85 20 122/80 96 01/17/19 21:00 01/17/19 21:00 01/17/19 21:00 01/17/19 21:00 01/17/19 21:00 - Medications Medications: Current Medications Acetaminophen (Tylenol 325mg Tab) 650 mg PO Q6 PRN PRN Reason: Fever >100.4 F Lactic Acid (Lac-Hydrin 12% Lotion (225 G)) 1 applic TOP BID [facility] Last Admin: 01/18/19 09:32 Dose: 1 applic Lidocaine (Lidoderm) 1 ea TD DAILY [facility] Last Admin: 01/18/19 09:33 Dose: Not Given Multivitamins/Vitamin C (Multi-Delyn Liquid) 15 ml PO DAILY [facility] Last Admin: 01/18/19 09:32 Dose: 15 ml Pantoprazole Sodium (Protonix Ec Tab) 40 mg PO DAILY [facility] Last Admin: 01/18/19 09:32 Dose: 40 mg Triamterene/HCTZ (Dyazide 25 Mg-37.5 Mg) 1 cap PO DAILY [facility] Last Admin: 01/18/19 09:32 Dose: Not Given - Labs Labs: 01/08/19 06:55 01/15/19 06:05 Assessment and Plan (1) Bilateral lower extremity edema Status: Chronic (2) DVT (deep venous thrombosis) Status: Chronic (3) Prostate cancer Status: Inactive (4) Pulmonary embolism and infarction Status: Resolved (5) GI bleed Status: Resolved (6) Arrhythmia, atrial Status: Acute
--- NOTE | 2019-01-18 10:19 | CP.PCM.PN ---
Subjective - Date & Time of Evaluation Date of Evaluation: 01/18/19 Time of Evaluation: 09:45 - Subjective Subjective: NO CHEST PAIN OR SOB Objective - Vital Signs/Intake and Output Vital Signs (last 24 hours): Temp Pulse Resp BP Pulse Ox 98.2 F 85 20 122/80 96 01/17/19 21:00 01/17/19 21:00 01/17/19 21:00 01/17/19 21:00 01/17/19 21:00 - Medications Medications: Current Medications Acetaminophen (Tylenol 325mg Tab) 650 mg PO Q6 PRN PRN Reason: Fever >100.4 F Lactic Acid (Lac-Hydrin 12% Lotion (225 G)) 1 applic TOP BID [facility] Last Admin: 01/18/19 09:32 Dose: 1 applic Lidocaine (Lidoderm) 1 ea TD DAILY [facility] Last Admin: 01/18/19 09:33 Dose: Not Given Metolazone (Zaroxolyn) 2.5 mg PO DAILY [facility] Multivitamins/Vitamin C (Multi-Delyn Liquid) 15 ml PO DAILY [facility] Last Admin: 01/18/19 09:32 Dose: 15 ml Pantoprazole Sodium (Protonix Ec Tab) 40 mg PO DAILY [facility] Last Admin: 01/18/19 09:32 Dose: 40 mg - Labs Labs: 01/08/19 06:55 01/15/19 06:05 - Respiratory Exam Respiratory Exam: Clear to Ausculation Bilateral - Cardiovascular Exam Additional comments: SINUS WITH FREQUENT ECTOPIC BEATS - Extremities Exam Extremities Exam: Pedal Edema - Additional Findings Additional findings: PATIENT DESATURATED TO 75% ON RA DURING PT AND HAD TACHYCARDIA UP TO 153 BPM Assessment and Plan - Assessment and Plan (Free Text) Assessment: SINUS RHYTHM WITH FREQUENT PACS AND PVC LEG EDEMA GI BLEED HX OF BILAT DVT AND BILAT PE Plan: PATIENT DISCUSSED WITH DR TAYLOR AND WE WILL DO A HOLTER MONITOR TO BETTER ASSESS HIS ECTOPIC BEATS AND BEGIN ZAROXOLYN
[2019-01-18] MEDS: metOLazone 2.5 MG TAB PO SCH (12:06)
[2019-01-19] MEDS: Multi Vitamins 15 mL UD Oral Solution PO SCH (08:38)
[2019-01-19] MEDS: Pantoprazole 40 mg EC Tab PO SCH (08:38)
[2019-01-19] MEDS: metOLazone 2.5 MG TAB PO SCH (08:38)
[2019-01-19] MEDS: Lidocaine 5% Patch TD SCH (08:39)
--- NOTE | 2019-01-19 10:59 | CP.PCM.PN ---
Subjective - Date & Time of Evaluation Date of Evaluation: 01/19/19 Time of Evaluation: 10:53 - Subjective Subjective: There appears to be some mild improvement in lower extremities edema with use of Zaroxolyn. When awakened his SpO2 was in the mid 80s, but improved after a few minutes of wakefulness. Will continue diuretic therapy and ask GI for opinion regarding starting anticoagulation (full dose). Will request overnight oximetry recording as well. Objective - Vital Signs/Intake and Output Vital Signs (last 24 hours): Temp Pulse Resp BP Pulse Ox 97.9 F 80 18 136/77 98 01/19/19 08:00 01/19/19 09:28 01/19/19 08:00 01/19/19 09:28 01/19/19 09:28 - Medications Medications: Current Medications Acetaminophen (Tylenol 325mg Tab) 650 mg PO Q6 PRN PRN Reason: Fever >100.4 F Lactic Acid (Lac-Hydrin 12% Lotion (225 G)) 1 applic TOP BID [facility] Last Admin: 01/19/19 08:39 Dose: 1 applic Lidocaine (Lidoderm) 1 ea TD DAILY [facility] Last Admin: 01/19/19 08:39 Dose: Not Given Metolazone (Zaroxolyn) 2.5 mg PO DAILY [facility] Last Admin: 01/19/19 08:38 Dose: 2.5 mg Multivitamins/Vitamin C (Multi-Delyn Liquid) 15 ml PO DAILY [facility] Last Admin: 01/19/19 08:38 Dose: 15 ml Pantoprazole Sodium (Protonix Ec Tab) 40 mg PO DAILY [facility] Last Admin: 01/19/19 08:38 Dose: 40 mg - Labs Labs: 01/08/19 06:55 01/15/19 06:05 Assessment and Plan (1) Bilateral lower extremity edema Status: Chronic (2) DVT (deep venous thrombosis) Status: Chronic (3) Prostate cancer Status: Inactive (4) Pulmonary embolism and infarction Status: Resolved (5) GI bleed Status: Resolved (6) Arrhythmia, atrial Status: Acute
--- NOTE | 2019-01-19 15:29 | CP.PCM.CON ---
History of Present Illness - History of Present Illness History of Present Illness: 88 yo male with h/o DVT, previously admitted with rectal bleed and at that time had upper and lower endoscopy. He was found to have erosive duodenitis and son diverticulosis. Patient states he had an episode of bleeding just prior to this admission. No evidence of bleeding seen since Review of Systems - Constitutional Constitutional: absent: Chills - EENT Eyes: absent: Change in Vision Ears: absent: Ear Pain Nose/Mouth/Throat: absent: Epistaxis - Cardiovascular Cardiovascular: absent: Chest Pain - Respiratory Respiratory: absent: Dyspnea - Gastrointestinal Gastrointestinal: As Per HPI - Genitourinary Genitourinary: absent: Change in Urinary Stream Past Patient History - Past Medical History & Family History Past Medical History?: Yes - Past Social History Smoking Status: Never Smoked Chewing Tobacco Use: No Cigar Use: No Alcohol: Social Drugs: Denies Home Situation {Lives}: With Family - CARDIAC Hx Cardiac Disorders: Yes Hx Peripheral Edema: Yes - PULMONARY Hx Pulmonary Embolism: Yes (09/2014) - NEUROLOGICAL Hx Neurological Disorder: No - HEENT Hx HEENT Problems: No - RENAL Hx Chronic Kidney Disease: No - ENDOCRINE/METABOLIC Hx Endocrine Disorders: No - HEMATOLOGICAL/ONCOLOGICAL Hx Cancer: Yes (prostate; seed implants) Hx Human Immunodeficiency Virus (HIV): No - INTEGUMENTARY Hx Dermatological Problems: Yes Other/Comment: skin cancer removed from back - MUSCULOSKELETAL/RHEUMATOLOGICAL Hx Falls: Yes (1 month ago) - GASTROINTESTINAL Hx Gall Bladder Disease: Yes (porcelain GB) - GENITOURINARY/GYNECOLOGICAL Hx Prostate Cancer: Yes - PSYCHIATRIC Hx Psychophysiologic Disorder: No Hx Substance Use: No - SURGICAL HISTORY Hx Cholecystectomy: Yes Other/Comment: PROSTATE SEED IMPLANT 2002. IVC FILTER IMPLANT - ANESTHESIA Hx Anesthesia: Yes Hx Anesthesia Reactions: No Hx Malignant Hyperthermia: No Meds Allergies/Adverse Reactions: Allergies Allergy/AdvReac Type Severity Reaction Status Date / Time No Known Allergies Allergy Verified 09/19/14 12:39 - Medications Medications: Current Medications Acetaminophen (Tylenol 325mg Tab) 650 mg PO Q6 PRN PRN Reason: Fever >100.4 F Lactic Acid (Lac-Hydrin 12% Lotion (225 G)) 1 applic TOP BID [facility] Last Admin: 01/19/19 08:39 Dose: 1 applic Lidocaine (Lidoderm) 1 ea TD DAILY [facility] Last Admin: 01/19/19 08:39 Dose: Not Given Metolazone (Zaroxolyn) 2.5 mg PO DAILY [facility] Last Admin: 01/19/19 08:38 Dose: 2.5 mg Multivitamins/Vitamin C (Multi-Delyn Liquid) 15 ml PO DAILY [facility] Last Admin: 01/19/19 08:38 Dose: 15 ml Pantoprazole Sodium (Protonix Ec Tab) 40 mg PO DAILY [facility] Last Admin: 01/19/19 08:38 Dose: 40 mg Physical Exam - Constitutional Appears: No Acute Distress - Head Exam Head Exam: ATRAUMATIC - Eye Exam Eye Exam: Normal appearance - ENT Exam ENT Exam: Normal Exam - Neck Exam Neck exam: Positive for: Normal Inspection - Respiratory Exam Respiratory Exam: Clear to Auscultation Bilateral - Cardiovascular Exam Cardiovascular Exam: REGULAR RHYTHM, +S1, +S2 - GI/Abdominal Exam GI & Abdominal Exam: Normal Bowel Sounds, Soft. absent: Tenderness Results - Vital Signs Recent Vital Signs: Last Vital Signs Temp 97.9 F 01/19/19 08:00 Pulse 80 01/19/19 14:38 Resp 18 01/19/19 08:00 BP 136/77 01/19/19 14:38 Pulse Ox 98 01/19/19 14:38 - Labs Result Diagrams: 01/08/19 06:55 01/15/19 06:05 Assessment & Plan (1) GI bleed Assessment and Plan: No active bleeding present so far during this hospitalization. Patient found to have erosive duodenitis (H. pylori negative) previously and has been on PPI since. This should ameliorate risk of upper GI bleeding. He does however also have severe pandiverticulosis and possible repeat lower GI bleed is less predictable. A benefit /risk analysis would need to be done to determine if the benefits of anticoagulation justifies the risk of another bleed. If feasible less than full anticoagulation would reduce the bleeding risk. Status: Resolved Priority: Medium
[2019-01-20 07:22] LABS: HEMOGLOBIN 11.3 g/dL (12.0-18.0); MEAN CELL VOLUME 95.7 fl (80.0-94.0); MEAN CORPUSCULAR HEMOGLOBIN 31.4 pg (27.0-31.0); MEAN CORPUSCULAR HGB CONC 32.9 g/dL (33.0-37.0); RBC 3.61 Mil/uL (4.40-5.90)
[2019-01-20 07:33] LABS: BLOOD UREA NITROGEN 25 mg/dl (9-20); CALCIUM 8.3 mg/dL (8.4-10.2); GFR NON-AFRICAN AMERICAN > 60
[2019-01-20] MEDS: Pantoprazole 40 mg EC Tab PO SCH (08:26)
[2019-01-20] MEDS: metOLazone 2.5 MG TAB PO SCH (08:26)
[2019-01-20] MEDS: Multi Vitamins 15 mL UD Oral Solution PO SCH (08:26)
[2019-01-20] MEDS: Lidocaine 5% Patch TD SCH (08:26)
--- NOTE | 2019-01-20 08:54 | CP.PCM.PN ---
Subjective - Date & Time of Evaluation Date of Evaluation: 01/20/19 Time of Evaluation: 08:30 - Subjective Subjective: NO CHEST PAIN BREATHING WELL OCCASIONAL SKIPPED BEAT Objective - Vital Signs/Intake and Output Vital Signs (last 24 hours): Temp Pulse Resp BP Pulse Ox 97.9 F 78 20 113/76 97 01/20/19 07:39 01/20/19 07:39 01/20/19 07:39 01/20/19 07:39 01/20/19 07:39 - Medications Medications: Current Medications Acetaminophen (Tylenol 325mg Tab) 650 mg PO Q6 PRN PRN Reason: Fever >100.4 F Lactic Acid (Lac-Hydrin 12% Lotion (225 G)) 1 applic TOP BID [facility] Last Admin: 01/20/19 08:26 Dose: 1 applic Lidocaine (Lidoderm) 1 ea TD DAILY [facility] Last Admin: 01/20/19 08:26 Dose: Not Given Metolazone (Zaroxolyn) 2.5 mg PO DAILY [facility] Last Admin: 01/20/19 08:26 Dose: 2.5 mg Multivitamins/Vitamin C (Multi-Delyn Liquid) 15 ml PO DAILY [facility] Last Admin: 01/20/19 08:26 Dose: 15 ml Pantoprazole Sodium (Protonix Ec Tab) 40 mg PO DAILY [facility] Last Admin: 01/20/19 08:26 Dose: 40 mg - Labs Labs: 01/20/19 06:45 01/20/19 06:45 - Respiratory Exam Respiratory Exam: Clear to Ausculation Bilateral - Cardiovascular Exam Additional comments: UNDERLYING REGULAR RHYTHM WITH OCCASIONAL EXTRASYSTOLES - Extremities Exam Additional comments: SLIGHT DECREASE IN BILAT LE EDEMA Assessment and Plan - Assessment and Plan (Free Text) Assessment: SINUS RHYTHM WITH PACS AND PVCS GI BLEED HISTORY OF BILAT DVTS AND PES Plan: CONTINUE ZAROXOLYN AND PROTONIX HOLTER WAS DONE-AWAITING REPORT
--- NOTE | 2019-01-20 11:04 | CP.PCM.PN ---
<MauricioRichardson - Last Filed: 01/20/19 12:02> Subjective - Date & Time of Evaluation Date of Evaluation: 01/20/19 Time of Evaluation: 09:45 - Subjective Subjective: Patient seen and examined this morning with Dr. Crockett/Pulmonary NAD, not acute event overnight Saturating above 96% (will follow up overnight spo2/overnight oximetry) Mild improved LEs edema, c/w Metolazone Seen by GI and Cardiology VS, CBC, CMP reviewed Continue management as ordered Objective - Vital Signs/Intake and Output Vital Signs (last 24 hours): Temp Pulse Resp BP Pulse Ox 97.9 F 78 20 113/76 97 01/20/19 07:39 01/20/19 07:39 01/20/19 07:39 01/20/19 07:39 01/20/19 07:39 - Medications Medications: Current Medications Acetaminophen (Tylenol 325mg Tab) 650 mg PO Q6 PRN PRN Reason: Fever >100.4 F Lactic Acid (Lac-Hydrin 12% Lotion (225 G)) 1 applic TOP BID [facility] Last Admin: 01/20/19 08:26 Dose: 1 applic Lidocaine (Lidoderm) 1 ea TD DAILY [facility] Last Admin: 01/20/19 08:26 Dose: Not Given Metolazone (Zaroxolyn) 2.5 mg PO DAILY [facility] Last Admin: 01/20/19 08:26 Dose: 2.5 mg Multivitamins/Vitamin C (Multi-Delyn Liquid) 15 ml PO DAILY [facility] Last Admin: 01/20/19 08:26 Dose: 15 ml Pantoprazole Sodium (Protonix Ec Tab) 40 mg PO DAILY [facility] Last Admin: 01/20/19 08:26 Dose: 40 mg - Labs Labs: 01/20/19 06:45 01/20/19 06:45 - Constitutional Appears: No Acute Distress - Head Exam Head Exam: NORMAL INSPECTION - Eye Exam Eye Exam: Normal appearance, PERRL Pupil Exam: NORMAL ACCOMODATION - ENT Exam ENT Exam: Mucous Membranes Moist - Neck Exam Neck Exam: Normal Inspection - Respiratory Exam Respiratory Exam: Clear to Ausculation Bilateral, NORMAL BREATHING PATTERN - Cardiovascular Exam Cardiovascular Exam: REGULAR RHYTHM, +S1, +S2 - GI/Abdominal Exam GI & Abdominal Exam: Soft, Normal Bowel Sounds. absent: Tenderness - Extremities Exam Additional comments: b/L LEs swelling/edema and skin changes (more on R) and mild tenderness (Improved after Zaroxolyn) - Back Exam Back Exam: absent: CVA tenderness (L), CVA tenderness (R) - Neurological Exam Neurological Exam: Alert, Awake, Oriented x3 Neuro motor strength exam: Left Upper Extremity: 4, Right Upper Extremity: 4, Left Lower Extremity: 4, Right Lower Extremity: 4 - Psychiatric Exam Psychiatric exam: Normal Affect, Normal Mood - Skin Additional comments: Lowe extremities skin changes due to chronic venous stasis/DVT Assessment and Plan (1) Bilateral lower extremity edema Status: Chronic (2) DVT (deep venous thrombosis) Status: Chronic (3) Prostate CA Status: Inactive (4) Pulmonary embolism and infarction Status: Resolved (5) Arrhythmia, atrial Status: Acute (6) GI bleed Status: Resolved (7) Hypokalemia Status: Acute <Moo Crockett - Last Filed: 01/21/19 07:56> Subjective - Subjective Subjective: Seen on rounds with the resident. Case was discussed and the patient was examined. Physical findings and lab data were reviewed. Diagnosis and plan of care were formulated. The resident's entry in the EMR is an accurate reflection of this encounter. Objective - Vital Signs/Intake and Output Vital Signs (last 24 hours): Temp Pulse Resp BP Pulse Ox 98.0 F 91 H 20 125/75 96 01/20/19 19:16 01/20/19 19:16 01/20/19 19:16 01/20/19 19:16 01/20/19 19:16 - Medications Medications: Current Medications Acetaminophen (Tylenol 325mg Tab) 650 mg PO Q6 PRN PRN Reason: Fever >100.4 F Lactic Acid (Lac-Hydrin 12% Lotion (225 G)) 1 applic TOP BID [facility] Last Admin: 01/20/19 17:52 Dose: 1 applic Lidocaine (Lidoderm) 1 ea TD DAILY [facility] Last Admin: 01/20/19 08:26 Dose: Not Given Metolazone (Zaroxolyn) 2.5 mg PO DAILY [facility] Last Admin: 01/20/19 08:26 Dose: 2.5 mg Multivitamins/Vitamin C (Multi-Delyn Liquid) 15 ml PO DAILY [facility] Last Admin: 01/20/19 08:26 Dose: 15 ml Pantoprazole Sodium (Protonix Ec Tab) 40 mg PO DAILY [facility] Last Admin: 01/20/19 08:26 Dose: 40 mg Potassium Chloride (K-Dur 20 Meq Er Tab) 20 meq PO BID [facility] Stop: 01/21/19 09:01 Last Admin: 01/20/19 19:54 Dose: 20 meq - Labs Labs: 01/20/19 06:45 01/20/19 06:45 Assessment and Plan (1) Bilateral lower extremity edema Status: Chronic (2) DVT (deep venous thrombosis) Status: Chronic (3) Prostate cancer Status: Inactive (4) Pulmonary embolism and infarction Status: Resolved (5) GI bleed Status: Resolved (6) Arrhythmia, atrial Status: Acute
[2019-01-20] MEDS: Potassium Chloride 20 mEq ER Tab PO SCH ×2 (13:22→19:54)
--- NOTE | 2019-01-20 14:07 | CP.PCM.PN ---
Subjective - Date & Time of Evaluation Date of Evaluation: 01/20/19 Time of Evaluation: 09:00 - Subjective Subjective: Patient w/o complaint. No bleeding. Objective - Vital Signs/Intake and Output Vital Signs (last 24 hours): Temp Pulse Resp BP Pulse Ox 97.9 F 84 20 113/76 95 01/20/19 07:39 01/20/19 10:45 01/20/19 07:39 01/20/19 07:39 01/20/19 10:45 - Medications Medications: Current Medications Acetaminophen (Tylenol 325mg Tab) 650 mg PO Q6 PRN PRN Reason: Fever >100.4 F Lactic Acid (Lac-Hydrin 12% Lotion (225 G)) 1 applic TOP BID [facility] Last Admin: 01/20/19 08:26 Dose: 1 applic Lidocaine (Lidoderm) 1 ea TD DAILY [facility] Last Admin: 01/20/19 08:26 Dose: Not Given Metolazone (Zaroxolyn) 2.5 mg PO DAILY [facility] Last Admin: 01/20/19 08:26 Dose: 2.5 mg Multivitamins/Vitamin C (Multi-Delyn Liquid) 15 ml PO DAILY [facility] Last Admin: 01/20/19 08:26 Dose: 15 ml Pantoprazole Sodium (Protonix Ec Tab) 40 mg PO DAILY [facility] Last Admin: 01/20/19 08:26 Dose: 40 mg Potassium Chloride (K-Dur 20 Meq Er Tab) 20 meq PO BID [facility] Stop: 01/21/19 09:01 Last Admin: 01/20/19 13:22 Dose: 20 meq - Labs Labs: 01/20/19 06:45 01/20/19 06:45 - Head Exam Head Exam: ATRAUMATIC - Eye Exam Eye Exam: Normal appearance - ENT Exam ENT Exam: Normal Exam - Neck Exam Neck Exam: Full ROM - Cardiovascular Exam Cardiovascular Exam: REGULAR RHYTHM - GI/Abdominal Exam GI & Abdominal Exam: Soft, Normal Bowel Sounds. absent: Tenderness Assessment and Plan (1) GI bleed Assessment & Plan: No further GI bleeding this hospitalization. Anticoagulation carries risks though if deemed absolutely necessary may use with careful monitoring of the patient for lower GI bleeding. He should avoid aspirin. Status: Resolved
--- NOTE | 2019-01-21 07:33 | CP.PCM.PN ---
<Kareem Harrisaixa - Last Filed: 01/21/19 13:20> Subjective - Date & Time of Evaluation Date of Evaluation: 01/21/19 Time of Evaluation: 12:47 - Subjective Subjective: No acute overnight events. Patient with complaints of lower extremity edema, improves overnight. Has been participating with PT. No chest pain, shortness of breath, abominal pain. He has been eating well, has good appetite Objective - Vital Signs/Intake and Output Vital Signs (last 24 hours): Temp Pulse Resp BP Pulse Ox 98.0 F 91 H 20 125/75 96 01/20/19 19:16 01/20/19 19:16 01/20/19 19:16 01/20/19 19:16 01/20/19 19:16 - Medications Medications: Current Medications Acetaminophen (Tylenol 325mg Tab) 650 mg PO Q6 PRN PRN Reason: Fever >100.4 F Lactic Acid (Lac-Hydrin 12% Lotion (225 G)) 1 applic TOP BID [facility] Last Admin: 01/20/19 17:52 Dose: 1 applic Lidocaine (Lidoderm) 1 ea TD DAILY [facility] Last Admin: 01/20/19 08:26 Dose: Not Given Metolazone (Zaroxolyn) 2.5 mg PO DAILY [facility] Last Admin: 01/20/19 08:26 Dose: 2.5 mg Multivitamins/Vitamin C (Multi-Delyn Liquid) 15 ml PO DAILY [facility] Last Admin: 01/20/19 08:26 Dose: 15 ml Pantoprazole Sodium (Protonix Ec Tab) 40 mg PO DAILY [facility] Last Admin: 01/20/19 08:26 Dose: 40 mg Potassium Chloride (K-Dur 20 Meq Er Tab) 20 meq PO BID [facility] Stop: 01/21/19 09:01 Last Admin: 01/20/19 19:54 Dose: 20 meq - Labs Labs: 01/20/19 06:45 01/20/19 06:45 - Constitutional Appears: Non-toxic, No Acute Distress - Head Exam Head Exam: ATRAUMATIC, NORMAL INSPECTION, NORMOCEPHALIC - Respiratory Exam Respiratory Exam: Clear to Ausculation Bilateral, NORMAL BREATHING PATTERN - Cardiovascular Exam Cardiovascular Exam: REGULAR RHYTHM, +S1, +S2 - GI/Abdominal Exam GI & Abdominal Exam: Soft, Normal Bowel Sounds - Extremities Exam Extremities Exam: Pedal Edema (2+ up to knee) - Neurological Exam Neurological Exam: Alert, Awake - Psychiatric Exam Psychiatric exam: Normal Affect, Normal Mood - Skin Skin Exam: Dry, Intact Assessment and Plan - Assessment and Plan (Free Text) Assessment: Assessment: 88 yo male with history of DVT with IVC filter and PE was admitted initially because of GI bleed. Anticoagulant was DC and patient had endoscopy which showed non-bleeding duodenal ulcers. Patients pedal edema persists but has improved. Patient is in TCU for PT/OT and further management and therapy. Lower back pain, gait instability -recent onto lumbar/SI fall 1 month ago -Pelvis and lumbar spine xray showed no acute fracture or pathology -pain control with lidoderm patch and tylenol PRN -continue PT/OT Lower extremity edema/weakness -bilateral, with RLE erythematous patch -continue PT/OT -Vascular surgery was consulted:conservative treatment at this time is for CORNELIA bandages to bilateral lower extremities -elevate legs -Pulmonology on consult: Dr. Crockett: lower dose diuretic zaroxolyn 2.5 OD, 24hr holter and dermatology evaluation -Cardiology on consult: Dr. Oneal: holter monitor to better assess ectopic beats Scrotal edema -acute -no urinary retention/no dysuria -elevate scrotum Acute/Subacute on chronic DVT to RLE, hx of PE -chronic, patient has IVC filter in place -hold anticoagulation due to recent rectal bleed, d/w GI ;risk/benefits of anticoagulation vs gi bleed need to be considered. DVT prophylaxis -SCD's (hold anticoagulation due to recent GI bleed) <Mariana Rodriguez - Last Filed: 01/21/19 18:49> Objective - Vital Signs/Intake and Output Vital Signs (last 24 hours): Temp Pulse Resp BP Pulse Ox 97.2 F L 84 17 100/67 97 01/21/19 12:50 01/21/19 12:50 01/21/19 12:50 01/21/19 12:50 01/21/19 12:50 Intake and Output: 01/21/19 01/21/19 06:59 18:59 Intake Total 300 Output Total 750 Balance -450 - Medications Medications: Current Medications Acetaminophen (Tylenol 325mg Tab) 650 mg PO Q6 PRN PRN Reason: Fever >100.4 F Lactic Acid (Lac-Hydrin 12% Lotion (225 G)) 1 applic TOP BID [facility] Last Admin: 01/21/19 08:21 Dose: 1 applic Lidocaine (Lidoderm) 1 ea TD DAILY [facility] Last Admin: 01/21/19 08:18 Dose: Not Given Metolazone (Zaroxolyn) 2.5 mg PO DAILY [facility] Last Admin: 01/21/19 08:16 Dose: 2.5 mg Multivitamins/Minerals (Therapeutic-M Tab) 1 tab PO DAILY [facility] Pantoprazole Sodium (Protonix Ec Tab) 40 mg PO DAILY [facility] Last Admin: 01/21/19 08:16 Dose: 40 mg - Labs Labs: 01/20/19 06:45 01/20/19 06:45 Attending/Attestation - Attestation I have personally seen and examined this patient.: Yes I have fully participated in the care of the patient.: Yes I have reviewed all pertinent clinical information, including history, physical exam and plan: Yes Notes (Text): Agree with findings and plan as above.
[2019-01-21] MEDS: Pantoprazole 40 mg EC Tab PO SCH (08:16)
[2019-01-21] MEDS: metOLazone 2.5 MG TAB PO SCH (08:16)
[2019-01-21] MEDS: Multi Vitamins 15 mL UD Oral Solution PO SCH (08:16)
[2019-01-21] MEDS: Lidocaine 5% Patch TD SCH (08:18)
--- NOTE | 2019-01-21 13:58 | CP.PCM.PN ---
Subjective - Date & Time of Evaluation Date of Evaluation: 01/21/19 Time of Evaluation: 13:57 - Subjective Subjective: Seen in transitional care, seated in bedside chair. Had overnight recorded SpO2 which did show desaturations 88% or below for 23 minutes. Will require home oxygen via nasal canula while asleep. Discussed anticoagulation with GI, risk is too high with recent rectal bleed and diffuse diverticulosis. Also had multiple duodenal ulcer craters on upper endoscopy. Has been receiving lower dose Zaroxolyn 2.5MG once daily with slight improvement in the dependant edema, but low normal BP precludes higher dosing. Will need regular daily potassium supplement as a result of the above. Chronic bilateral lower extremity DVT with venous insufficiency. Sleep related hypoxia. Recent GI bleed. Diffuse diverticulosis. Prior bilateral pulmonary emboli. Elevated RVSP/mild pulmonary hypertension. Objective - Vital Signs/Intake and Output Vital Signs (last 24 hours): Temp Pulse Resp BP Pulse Ox 97.2 F L 84 17 100/67 97 01/21/19 12:50 01/21/19 12:50 01/21/19 12:50 01/21/19 12:50 01/21/19 12:50 - Medications Medications: Current Medications Acetaminophen (Tylenol 325mg Tab) 650 mg PO Q6 PRN PRN Reason: Fever >100.4 F Lactic Acid (Lac-Hydrin 12% Lotion (225 G)) 1 applic TOP BID [facility] Last Admin: 01/21/19 08:21 Dose: 1 applic Lidocaine (Lidoderm) 1 ea TD DAILY [facility] Last Admin: 01/21/19 08:18 Dose: Not Given Metolazone (Zaroxolyn) 2.5 mg PO DAILY [facility] Last Admin: 01/21/19 08:16 Dose: 2.5 mg Multivitamins/Minerals (Therapeutic-M Tab) 1 tab PO DAILY [facility] Pantoprazole Sodium (Protonix Ec Tab) 40 mg PO DAILY [facility] Last Admin: 01/21/19 08:16 Dose: 40 mg - Labs Labs: 01/20/19 06:45 01/20/19 06:45 Assessment and Plan (1) Bilateral lower extremity edema Status: Chronic (2) DVT (deep venous thrombosis) Status: Chronic (3) Prostate cancer Status: Inactive (4) Pulmonary embolism and infarction Status: Resolved (5) GI bleed Status: Resolved (6) Arrhythmia, atrial Status: Acute (7) Sleep related hypoxia Status: Chronic
[2019-01-21] MEDS: Potassium Chloride 20 mEq ER Tab PO SCH (20:10)
[2019-01-22] MEDS: Multivitamin With Minerals Tab PO SCH (08:21)
[2019-01-22] MEDS: metOLazone 2.5 MG TAB PO SCH (08:21)
[2019-01-22] MEDS: Lidocaine 5% Patch TD SCH (08:21)
[2019-01-22] MEDS: Pantoprazole 40 mg EC Tab PO SCH (08:21)
--- NOTE | 2019-01-22 11:52 | CP.PCM.PN ---
Subjective - Date & Time of Evaluation Date of Evaluation: 01/22/19 Time of Evaluation: 11:47 - Subjective Subjective: Progress remains very slow. Has good urine output, but pedal edema quickly returns when seated in chair. Vital signs remain stable, oxygenation is okay. Will try increased dose of Zaroxolin at an earlier time tomorrow. Repeat labs in AM. Plan for extended RONI. Objective - Vital Signs/Intake and Output Vital Signs (last 24 hours): Temp Pulse Resp BP Pulse Ox 97.5 F L 83 20 117/74 95 01/22/19 08:20 01/22/19 08:20 01/22/19 08:20 01/22/19 08:20 01/22/19 08:20 Intake and Output: 01/21/19 01/22/19 23:59 11:59 Intake Total 300 Output Total 750 Balance -450 - Medications Medications: Current Medications Acetaminophen (Tylenol 325mg Tab) 650 mg PO Q6 PRN PRN Reason: Fever >100.4 F Lactic Acid (Lac-Hydrin 12% Lotion (225 G)) 1 applic TOP BID [facility] Last Admin: 01/22/19 08:25 Dose: 1 applic Lidocaine (Lidoderm) 1 ea TD DAILY [facility] Last Admin: 01/22/19 08:21 Dose: Not Given Metolazone (Zaroxolyn) 5 mg PO Q24H [facility] Multivitamins/Minerals (Therapeutic-M Tab) 1 tab PO DAILY [facility] Last Admin: 01/22/19 08:21 Dose: 1 tab Pantoprazole Sodium (Protonix Ec Tab) 40 mg PO DAILY [facility] Last Admin: 01/22/19 08:21 Dose: 40 mg Potassium Chloride (Klor-Con 10) 10 meq PO DAILY [facility] - Labs Labs: 01/20/19 06:45 01/20/19 06:45 Assessment and Plan (1) Bilateral lower extremity edema Status: Chronic (2) DVT (deep venous thrombosis) Status: Chronic (3) Prostate cancer Status: Inactive (4) Pulmonary embolism and infarction Status: Resolved (5) GI bleed Status: Resolved (6) Arrhythmia, atrial Status: Acute (7) Sleep related hypoxia Status: Chronic
[2019-01-22] MEDS: Potassium Chloride 10 mEq ER Tab PO SCH (12:00)
[2019-01-23] MEDS ORDERED: metOLazone 5 MG TAB PO SCH ×2 (06:00→09:00)
[2019-01-23 06:55] LABS: HEMOGLOBIN 11.5 g/dL (12.0-18.0); MEAN CELL VOLUME 93.4 fl (80.0-94.0); MEAN CORPUSCULAR HEMOGLOBIN 31.3 pg (27.0-31.0); MEAN CORPUSCULAR HGB CONC 33.5 g/dL (33.0-37.0); RBC 3.67 Mil/uL (4.40-5.90)
[2019-01-23 07:04] LABS: BLOOD UREA NITROGEN 27 mg/dl (9-20); CALCIUM 8.3 mg/dL (8.4-10.2); GFR NON-AFRICAN AMERICAN > 60
[2019-01-23] MEDS: metOLazone 5 MG TAB PO SCH (09:10)
[2019-01-23] MEDS: Multivitamin With Minerals Tab PO SCH (09:10)
[2019-01-23] MEDS: Pantoprazole 40 mg EC Tab PO SCH (09:10)
[2019-01-23] MEDS: Lidocaine 5% Patch TD SCH (09:10)
[2019-01-23] MEDS: Potassium Chloride 10 mEq ER Tab PO SCH (09:10)
[2019-01-23 09:46] VITALS: PULSE 77
--- NOTE | 2019-01-23 12:58 | CP.PCM.PN ---
Subjective - Date & Time of Evaluation Date of Evaluation: 01/23/19 Time of Evaluation: 12:30 - Subjective Subjective: NO CHEST PAIN OR PALPITATIONS BREATHING COMFORTABLY Objective - Vital Signs/Intake and Output Vital Signs (last 24 hours): Temp Pulse Resp BP Pulse Ox 98.1 F 77 19 107/70 96 01/23/19 09:00 01/23/19 09:00 01/23/19 09:00 01/23/19 09:00 01/23/19 09:00 - Medications Medications: Current Medications Acetaminophen (Tylenol 325mg Tab) 650 mg PO Q6 PRN PRN Reason: Fever >100.4 F Lactic Acid (Lac-Hydrin 12% Lotion (225 G)) 1 applic TOP BID [facility] Last Admin: 01/23/19 09:09 Dose: 1 applic Lidocaine (Lidoderm) 1 ea TD DAILY [facility] Last Admin: 01/23/19 09:10 Dose: Not Given Metolazone (Zaroxolyn) 5 mg PO Q24H [facility] Last Admin: 01/23/19 09:10 Dose: 5 mg Multivitamins/Minerals (Therapeutic-M Tab) 1 tab PO DAILY [facility] Last Admin: 01/23/19 09:10 Dose: 1 tab Pantoprazole Sodium (Protonix Ec Tab) 40 mg PO DAILY [facility] Last Admin: 01/23/19 09:10 Dose: 40 mg Potassium Chloride (Klor-Con 10) 10 meq PO DAILY [facility] Last Admin: 01/23/19 09:10 Dose: 10 meq - Labs Labs: 01/23/19 05:30 01/23/19 05:30 - Respiratory Exam Respiratory Exam: Clear to Ausculation Bilateral - Cardiovascular Exam Additional comments: MOSTLY REGULAR RHYTHM WITH SOME ECTOPIC BEATS - Extremities Exam Extremities Exam: Pedal Edema - Additional Findings Additional findings: HOLTER MONITOR REPORT REVIEWED BY MYSELF AND SHOWS SINUS RHYTHM WITH FREQUENT PACS SINGLE BEATS, PAIRED BEATS AND SHORT RUNS FROM 3 TO 6 BEATS IN A ROW, NO SUSTAINED SVT, FREQUENT PVS MOSTLY SINGLE BEATS BUT ALSO WITH RARE COUPLETS AND TWO TRIPLETS. (OFFICIALLY READ SHORT AT FIB RUNS UP TO 6 BEATS BUT I STRONGLY DISAGREE WITH THIS TERMINOLOGY AND INSTEAD WOULD STATE THAT THE RHYTHM IS SINUS WITH PACS INCLUDING VERY SHORT ATRIAL RUNS UP TO 6 BEATS DURATION) K+ 3.4 Assessment and Plan - Assessment and Plan (Free Text) Assessment: STABLE CARDIAC STATUS WITH SINUS RHYTHM WITH FREQUENT BUT BENIGN PACS AND PVCS GI BLEED HISTORY OF BILAT DVTS AND PES HYPOKALEMIA Plan: CONTINUE PROTONIX, ZAROXOLYN AND KCL NO TREATMENT NEEDED FOR BENIGN PACS AND PVCS
[2019-01-23] MEDS ORDERED: Potassium Chloride 20 mEq ER Tab PO ONE (13:29)
[2019-01-24] MEDS: Pantoprazole 40 mg EC Tab PO SCH (08:40)
[2019-01-24] MEDS: Potassium Chloride 10 mEq ER Tab PO SCH (08:41)
[2019-01-24] MEDS: metOLazone 5 MG TAB PO SCH (08:41)
[2019-01-24] MEDS: Multivitamin With Minerals Tab PO SCH (08:42)
[2019-01-24 10:14] VITALS: BP 140/85; RESP 17; TEMP 98.2; O2SAT 96
--- NOTE | 2019-01-24 11:03 | CP.PCM.PN ---
<Richardson Mauricio - Last Filed: 01/24/19 11:19> Subjective - Date & Time of Evaluation Date of Evaluation: 01/24/19 Time of Evaluation: 09:30 - Subjective Subjective: Patient seen and examined this morning with Dr. Crockett/Pulmonary Improved b/l LEs edema on increased dose of Zaroxolin Vs and labs reviewed Patient denies any acute event overnight Possible transfer today to [facility] Objective - Vital Signs/Intake and Output Vital Signs (last 24 hours): Temp Pulse Resp BP Pulse Ox 98.2 F 77 17 140/85 96 01/24/19 09:00 01/24/19 09:00 01/24/19 09:00 01/24/19 09:00 01/24/19 09:00 Intake and Output: 01/24/19 01/24/19 06:59 18:59 Intake Total 180 Output Total 250 Balance -70 - Medications Medications: Current Medications Acetaminophen (Tylenol 325mg Tab) 650 mg PO Q6 PRN PRN Reason: Fever >100.4 F Lactic Acid (Lac-Hydrin 12% Lotion (225 G)) 1 applic TOP BID [facility] Last Admin: 01/23/19 16:43 Dose: Not Given Lidocaine (Lidoderm) 1 ea TD DAILY [facility] Last Admin: 01/23/19 09:10 Dose: Not Given Metolazone (Zaroxolyn) 5 mg PO Q24H [facility] Last Admin: 01/24/19 08:41 Dose: 5 mg Multivitamins/Minerals (Therapeutic-M Tab) 1 tab PO DAILY [facility] Last Admin: 01/24/19 08:42 Dose: 1 tab Pantoprazole Sodium (Protonix Ec Tab) 40 mg PO DAILY [facility] Last Admin: 01/24/19 08:40 Dose: 40 mg Potassium Chloride (Klor-Con 10) 10 meq PO DAILY [facility] Last Admin: 01/24/19 08:41 Dose: 10 meq - Labs Labs: 01/23/19 05:30 01/23/19 05:30 - Constitutional Appears: No Acute Distress - Head Exam Head Exam: NORMAL INSPECTION - Eye Exam Eye Exam: Normal appearance Pupil Exam: NORMAL ACCOMODATION - ENT Exam ENT Exam: Mucous Membranes Moist - Neck Exam Neck Exam: Normal Inspection - Respiratory Exam Respiratory Exam: Clear to Ausculation Bilateral, NORMAL BREATHING PATTERN - Cardiovascular Exam Cardiovascular Exam: REGULAR RHYTHM, +S1, +S2 - GI/Abdominal Exam GI & Abdominal Exam: Soft, Normal Bowel Sounds. absent: Tenderness - Extremities Exam Additional comments: b/L LEs swelling/edema and skin changes (more on R) and mild tenderness (Improved after Zaroxolyn) - Back Exam Back Exam: NORMAL INSPECTION. absent: CVA tenderness (L), CVA tenderness (R) - Neurological Exam Neurological Exam: Alert, Awake, Oriented x3 Neuro motor strength exam: Left Upper Extremity: 4, Right Upper Extremity: 4, Left Lower Extremity: 4, Right Lower Extremity: 4 - Psychiatric Exam Psychiatric exam: Normal Affect - Skin Additional comments: Lowe extremities skin changes due to chronic venous stasis/DVT/edema. + ecchymosis b/l Assessment and Plan (1) Bilateral lower extremity edema Assessment & Plan: Improved C/w Zaroxolyn Status: Chronic (2) DVT (deep venous thrombosis) Assessment & Plan: Hold Anticoags due to risk of bleeding Status: Chronic (3) Prostate CA Status: Inactive (4) Pulmonary embolism and infarction Status: Resolved (5) Arrhythmia, atrial Status: Acute (6) GI bleed Status: Resolved (7) Hypokalemia Status: Acute <Moo Crockett - Last Filed: 01/25/19 11:24> Subjective - Subjective Subjective: The patient was seen on rounds in TCU with the resident. Interim events and current clinical status were reviewed. The patient was examined together with the resident and findings were discussed. Plan of care and current diagnosis were formulated. The EMR entry by the resident is an accurate reflection of this exam. Objective - Vital Signs/Intake and Output Vital Signs (last 24 hours): Temp Pulse Resp BP Pulse Ox 98.2 F 77 17 140/85 96 01/24/19 09:00 01/24/19 09:00 01/24/19 09:00 01/24/19 09:00 01/24/19 09:00 - Labs Labs: 01/23/19 05:30 01/23/19 05:30 Assessment and Plan (1) Bilateral lower extremity edema Status: Chronic (2) DVT (deep venous thrombosis) Status: Chronic (3) Prostate cancer Status: Inactive (4) Pulmonary embolism and infarction Status: Resolved (5) GI bleed Status: Resolved (6) Arrhythmia, atrial Status: Acute (7) Sleep related hypoxia Status: Chronic
[2019-01-24] MEDS: Lidocaine 5% Patch TD SCH (12:17)
--- NOTE | 2019-01-24 12:26 | CP.PCM.DIS ---
Provider - Provider Date of Admission: 01/07/19 21:08 Attending physician: Fidencio Ross Consults: 01/07/19 21:23 Pulmonology Consult Routine Comment: Consulting Provider: Moo Crockett Consulting Physician: Moo Crockett Reason for Consult: Hx of PE 01/08/19 02:42 Wound Care [Nursing Referral for Wound Care] Routine Comment: Physician Instructions: Reason For Exam: perineal redness 01/13/19 11:38 Cardiology Consult Routine Comment: a fib? Consulting Provider: Hany Oneal Consulting Physician: Hany Oneal Reason for Consult: Recent echo 01-10-19 a fib/elevated RVSP 01/18/19 09:40 Physician Consult Routine Comment: Consulting Provider: Josué Salazar Consulting Physician: Josué Salazar Reason for Consult: purpuric lesions RLE? 01/19/19 10:50 Gastroenterology Consult Routine Comment: Consulting Provider: Rodger Hawk Consulting Physician: Rodger Hawk Reason for Consult: UGI bleed (recent); can he take anticoag rx? Time Spent in preparation of Discharge (in minutes): 25 Diagnosis - Discharge Diagnosis (1) Low back pain Status: Chronic Comment: continue pain management and PT/OT (2) Bilateral lower extremity edema Status: Chronic Priority: Medium Comment: slowly improving. continue Zaroxolin (3) DVT (deep venous thrombosis) Status: Chronic Priority: Medium Comment: conservative management. continue hold on anticoagulant because of recent GI bleeding Hospital Course - Lab Results Lab Results: Most Recent Lab Values WBC 7.0 K/uL (4.8-10.8) 01/23/19 05:30 RBC 3.67 Mil/uL (4.40-5.90) L 01/23/19 05:30 Hgb 11.5 g/dL (12.0-18.0) L 01/23/19 05:30 Hct 34.3 % (35.0-51.0) L 01/23/19 05:30 MCV 93.4 fl (80.0-94.0) D 01/23/19 05:30 MCH 31.3 pg (27.0-31.0) H 01/23/19 05:30 MCHC 33.5 g/dL (33.0-37.0) 01/23/19 05:30 RDW 14.0 % (11.5-14.5) 01/23/19 05:30 Plt Count 223 K/uL (130-400) 01/23/19 05:30 MPV 7.9 fl (7.2-11.7) 01/08/19 06:55 Neut % (Auto) 77.7 % (50.0-75.0) H 01/08/19 06:55 Lymph % (Auto) 12.2 % (20.0-40.0) L 01/08/19 06:55 [place] % (Auto) 8.3 % (0.0-10.0) 01/08/19 06:55 Eos % (Auto) 1.3 % (0.0-4.0) 01/08/19 06:55 Baso % (Auto) 0.5 % (0.0-2.0) 01/08/19 06:55 Neut # (Auto) 7.0 K/uL (1.8-7.0) 01/08/19 06:55 Lymph # (Auto) 1.1 K/uL (1.0-4.3) 01/08/19 06:55 [place] # (Auto) 0.7 K/uL (0.0-0.8) 01/08/19 06:55 Eos # (Auto) 0.1 K/uL (0.0-0.7) 01/08/19 06:55 Baso # (Auto) 0.0 K/uL (0.0-0.2) 01/08/19 06:55 Sodium 134 mmol/l (132-148) 01/23/19 05:30 Potassium 3.4 MMOL/L (3.6-5.0) L 01/23/19 05:30 Chloride 96 mmol/L (98-107) L 01/23/19 05:30 Carbon Dioxide 31 mmol/L (22-30) H 01/23/19 05:30 Anion Gap 10 (10-20) 01/23/19 05:30 BUN 27 mg/dl (9-20) H 01/23/19 05:30 Creatinine 1.0 mg/dl (0.8-1.5) 01/23/19 05:30 Est GFR ( Amer) > 60 01/23/19 05:30 Est GFR (Non-Af Amer) > 60 01/23/19 05:30 Random Glucose 90 mg/dL (75-110) 01/23/19 05:30 Calcium 8.3 mg/dL (8.4-10.2) L 01/23/19 05:30 Prostate Specific Ag < 0.064 ng/ML (0.00-4.0) 01/10/19 07:50 - Hospital Course Hospital Course: 88 yo male with history of DVT with IVC filter and PE was admitted initially because of GI bleed. Anticoagulant was DC and patient had endoscopy which showed non-bleeding duodenal ulcers. Patient was also noted to have increased pedal edema extending to the genital area. Patient was transferred to TCU for further management and therapy. Patient did well with PT/OT however lower extremity did not improved. He is now for transfer to [facility] for further management. Discharge Exam - Head Exam Head Exam: NORMAL INSPECTION - Eye Exam Eye Exam: absent: Scleral icterus - ENT Exam ENT Exam: Mucous Membranes Moist - Respiratory Exam Respiratory Exam: absent: Rales, Rhonchi, Wheezes, Respiratory Distress - Cardiovascular Exam Cardiovascular Exam: REGULAR RHYTHM, +S1, +S2 - GI/Abdominal Exam GI & Abdominal Exam: Soft. absent: Tenderness - Rectal Exam Rectal Exam: Deferred - Extremities Exam Extremities exam: pedal edema - Neurological Exam Neurological exam: Alert, Oriented x3 - Psychiatric Exam Psychiatric exam: Normal Affect - Skin Skin Exam: Dry, Intact Discharge Plan - Follow Up Plan Condition: GOOD Disposition: REHAB FACILITY/REHAB UNIT
== END 2019-01-24 15:00 | DRG 299 ==
LOC: H.TCU 21:08
PROVIDERS: ADMIT Internal Medicine; ATTEND Internal Medicine
PROC: F08Z4FZ Home Management Treatment using Assistive, Adaptive, Supportive or Protective Equipment (ICD-10-PCS; principal; 2019-01-07)
PROC: F07M6FZ Therapeutic Exercise Treatment of Musculoskeletal System - Whole Body using Assistive, Adaptive, Supportive or Protective Equipment (ICD-10-PCS; 2019-01-07)
DX: I82.503 Chronic embolism and thrombosis of unspecified deep veins of lower extremity, bilateral (principal); K27.4 Chronic or unspecified peptic ulcer, site unspecified, with hemorrhage; I26.99 Other pulmonary embolism without acute cor pulmonale; I87.2 Venous insufficiency (chronic) (peripheral); K26.9 Duodenal ulcer, unspecified as acute or chronic, without hemorrhage or perforation; K29.80 Duodenitis without bleeding; K57.30 Diverticulosis of large intestine without perforation or abscess without bleeding; K64.8 Other hemorrhoids; N50.89 Other specified disorders of the male genital organs; Z85.46 Personal history of malignant neoplasm of prostate; Z85.828 Personal history of other malignant neoplasm of skin; Z86.711 Personal history of pulmonary embolism; Z95.828 Presence of other vascular implants and grafts; Z90.49 Acquired absence of other specified parts of digestive tract; D69.2 Other nonthrombocytopenic purpura; E87.6 Hypokalemia; G47.34 Idiopathic sleep related nonobstructive alveolar hypoventilation; I27.20 Pulmonary hypertension, unspecified; I48.91 Unspecified atrial fibrillation; I49.3 Ventricular premature depolarization; R00.0 Tachycardia, unspecified; R01.1 Cardiac murmur, unspecified; R26.9 Unspecified abnormalities of gait and mobility